=== PATIENT | male | born 1965 | race Caucasian/White ===

== ENCOUNTER 2018-02-14 11:33 | Outpatient (RCR) | payer OTHER, SELFPAY | END 2018-02-28 23:59 | disposition home or self-care (01) | LOC: CR 11:33 | PROVIDERS: PCP Family Medicine; Visit Provider Family Medicine | DX: Z51.89 Encounter for other specified aftercare (principal) ==

== ENCOUNTER 2018-03-02 20:29 | Outpatient (RCR) | payer OTHER, SELFPAY | END 2018-03-30 23:59 | disposition home or self-care (01) | LOC: CR 20:29 | PROVIDERS: PCP Family Medicine; Visit Provider Family Medicine | DX: Z51.89 Encounter for other specified aftercare (principal); Z95.2 Presence of prosthetic heart valve; I10 Essential (primary) hypertension ==

== ENCOUNTER 2018-03-28 13:22 | Outpatient (RCR) | payer OTHER, SELFPAY | END 2018-03-30 23:59 | disposition home or self-care (01) | LOC: CR 13:22 | PROVIDERS: PCP Family Medicine; Visit Provider Family Medicine | DX: Z95.2 Presence of prosthetic heart valve (principal); I10 Essential (primary) hypertension; Z51.89 Encounter for other specified aftercare | CPT/HCPCS: S9472 ==

== ENCOUNTER 2018-04-28 00:53 | Outpatient (CLI) | payer OTHER, SELFPAY ==
--- NOTE | 2018-04-28 13:35 | MERGE_ITS ---
*[facility]* *[facility]* [address] [place] [address] Date of study: 04/28/2018 Transthoracic Echocardiography M-mode, complete 2D, complete spectral Doppler, and color Doppler *STUDY CONCLUSIONS* Summary: 1. Left ventricle: The cavity size was normal. Systolic function was at the lower limits of normal. The estimated ejection fraction was 50-55%. 2. Aortic valve: There was mild regurgitation. Valve area (Vmean): 3.5cm^2. 3. Mitral valve: Status post PMVL repair with annuloplasty ring. There was moderate regurgitation. 4. Right ventricle: The cavity size was mildly dilated. Systolic function was normal. 5. Atrial septum: No defect or patent foramen ovale was identified. 6. Tricuspid valve: There was mild-moderate regurgitation. 7. Pulmonary arteries: Pulmonary systolic pressure was in the range of 20mm Hg to 30mm Hg. 8. Inferior vena cava: The vessel was normal in size. The respirophasic diameter changes were in the normal range (greater than or equal to 50%), consistent with normal central venous pressure. 9. Pericardium, extracardiac: A large, pericardial effusion was identified circumferential to the heart. The fluid contained focal strands. There was no chamber collapse. Features were not consistent with tamponade physiology. *PATIENT PRESENTATION* Height: 180.3cm ((71in) ) S/D Pressure: 128 / 73 Weight: 95.3kg ((209.6lb) ) BSA: 2.21m^2 Test start time: 02:00 PM. Test stop time: 03:00 PM. PERFORMING Unknown ORDERING Qi Hunt REFERRING Qi Hunt PERFORMING [facility] CABINETMAKER APPRENTICE Evelyn Johns, RT [place])([place]), [facility] *PROCEDURE DATA* Procedure information: The patient was identified by two identifiers. This study was interpreted by [facility]. Pertinent images and digital data are archived for permanent storage and are available for subsequent review. Comparison was made to the study of 10/29/2017. Study status: Routine. Transthoracic echocardiography. M-mode, complete 2D, complete spectral Doppler, and color Doppler. A Transthoracic Echocardiogram was performed. Scanning was performed from the parasternal, apical, subcostal, and suprasternal notch acoustic windows. Images were obtained using an [id number] cardiac ultrasound machine. Image quality was adequate. Study completion: The patient tolerated the procedure well. *CARDIAC ANATOMY* Left ventricle: The cavity size was normal. Systolic function was at the lower limits of normal. The estimated ejection fraction was 50-55%. The tissue Doppler parameters were normal. Diastolic parameters were normal. There was no evidence of elevated ventricular filling pressure by Doppler parameters. Aortic valve: Trileaflet. Doppler: There was no stenosis. There was mild regurgitation. VTI ratio of LVOT to aortic valve: 0.72. Valve area (VTI): 3.3cm^2. Indexed valve area (VTI): 1.5cm^2/m^2. Peak velocity ratio of LVOT to aortic valve: 0.76. Valve area (Vmax): 3.5cm^2. Indexed valve area (Vmax): 1.6cm^2/m^2. Mean velocity ratio of LVOT to aortic valve: 0.77. Valve area (Vmean): 3.5cm^2. Indexed valve area (Vmean): 1.6cm^2/m^2. Mean gradient (S): 5.4mm Hg. Peak gradient (S): 9.5mm Hg. Aorta: Aortic root: The aortic root was normal in size. Ascending aorta: The ascending aorta was normal in size. Mitral valve: Status post PMVL repair with annuloplasty ring. Doppler: There was no evidence for stenosis. There was moderate regurgitation. Valve area by pressure half-time: 2.8cm^2. Indexed valve area by pressure half-time: 1.3cm^2/m^2. Peak gradient (D): 3.4mm Hg. Left atrium: The atrium was normal in size. Atrial septum: No defect or patent foramen ovale was identified. Right ventricle: The cavity size was mildly dilated. Systolic function was normal. Pulmonic valve: Doppler: There was no evidence for stenosis. There was no significant regurgitation. Tricuspid valve: Doppler: There was mild-moderate regurgitation. Pulmonary artery: Poorly visualized. Pulmonary systolic pressure was in the range of 20mm Hg to 30mm Hg. Right atrium: The atrium was normal in size. Pericardium: A large, pericardial effusion was identified circumferential to the heart. The fluid contained focal strands. Doppler: There was no chamber collapse. Features were not consistent with tamponade physiology. Systemic veins: Inferior vena cava: The vessel was normal in size. The respirophasic diameter changes were in the normal range (greater than or equal to 50%), consistent with normal central venous pressure. Measurements Left ventricle Value 10/29/2017 Reference LV ID, ED, PLAX 4.8 cm 5.6 3.5 - 6.0 LV ID, ES, PLAX 3.5 cm 3.6 2.1 - 4.0 LV PW thickness, ED, PLAX 1.1 cm 1.1 LV end-diastolic volume, 120 ml 92 1-p A2C LV ejection fraction, 1-p 56 % 53 A2C LV end-diastolic volume, 131 ml 112 1-p A4C LV ejection fraction, 1-p 50 % 62 A4C LV e', lateral 0.126 m/sec 0.088 LV E/e', lateral 7 9 LV e', medial 0.089 m/sec 0.093 LV E/e', medial 10 8 LV e', average 0.107 m/sec 0.091 LV E/e', average 9 9 Ventricular septum Value 10/29/2017 Reference IVS thickness, ED, PLAX 1.2 cm 1.1 LVOT Value 10/29/2017 Reference LVOT ID, A-P 2.4 cm 2.4 LVOT area 4.6 cm^2 4.5 LVOT peak velocity, S 1.17 m/sec 1.25 LVOT mean velocity, S 0.86 m/sec 0.81 LVOT VTI, S 23.9 cm 20.8 LVOT peak gradient, S 5.5 mm Hg 6.3 LVOT mean gradient, S 3.3 mm Hg 3.1 Stroke volume (SV), LVOT DP 110 ml 93 Stroke index (SV/bsa), LVOT 50 ml/m^2 40 DP Aortic valve Value 10/29/2017 Reference Aortic valve peak velocity, 1.5 m/sec 1.9 S Aortic valve mean velocity, 1.12 m/sec 1.13 S Aortic valve VTI, S 33.0 cm 33.1 Aortic mean gradient, S 5.4 mm Hg 6.1 Aortic peak gradient, S 9.5 mm Hg 13.8 VTI ratio, LVOT/AV 0.72 0.63 Aortic valve area, VTI 3.3 cm^2 2.8 Velocity ratio, peak, 0.76 0.67 LVOT/AV Aortic valve area, peak 3.5 cm^2 3 velocity Velocity ratio, mean, 0.77 0.71 LVOT/AV Aortic valve area, mean 3.5 cm^2 3.2 velocity Aortic valve area/bsa, mean 1.6 cm^2/m^2 1.4 velocity Aorta Value 10/29/2017 Reference Aortic root ID, ED 3.3 cm 3.2 Ascending aorta ID, A-P, S 3.6 cm 3.3 Left atrium Value 10/29/2017 Reference LA ID, A-P, ES 3.9 cm 4.8 LA ID/bsa, A-P 1.8 cm/m^2 2.1 <=2.2 LA area, ES, A4C (H) 29 cm^2 29.9 8.8 - 23.4 LA area, ES, A2C 23 cm^2 21 LA volume, ES, 2-p 102 ml 99 LA volume/bsa, ES, 2-p 46 ml/m^2 42 LA/aortic root ratio 1.19 1.49 Mitral valve Value 10/29/2017 Reference Mitral E-wave peak velocity 0.92 m/sec 0.77 Mitral A-wave peak velocity 0.85 m/sec 0.56 Mitral deceleration time (H) 269 ms 182 150 - 230 Mitral pressure half-time 78 ms 53 Mitral peak gradient, D 3.4 mm Hg 2.4 Mitral E/A ratio, peak 1.08 1.37 Mitral valve area, PHT, DP 2.8 cm^2 4.2 Pulmonary veins Value 10/29/2017 Reference Pulmonary vein peak 0.42 m/sec velocity, S Pulmonary vein peak 0.54 m/sec velocity, D Pulmonary vein velocity 0.78 ratio, peak, S/D Pulmonary vein A-wave 0.36 m/sec reversal peak velocity Tricuspid valve Value 10/29/2017 Reference Tricuspid regurg peak 2.4 m/sec 2.8 velocity Tricuspid peak RV-RA 23.2 mm Hg 30.7 gradient Right atrium Value 10/29/2017 Reference RA area, ES, A4C 16.1 cm^2 16.1 8.3 - 19.5 Pericardium Value 10/29/2017 Reference Pericardial effusion 1.6 cm dimens, anterior Pericardial effusion 2.9 cm dimens, posterior Legend: (L) and (H) steven values outside specified reference range. I have personally reviewed the images and have reviewed and edited the reported findings. Electronically signed by Colton Sanders MD 04/28/2018 17:30
== END 2018-04-28 01:13 ==
PROVIDERS: PCP Family Medicine; Visit Provider Internal Medicine Cardiovascular Disease
DX: I35.1 Nonrheumatic aortic (valve) insufficiency (principal); I36.1 Nonrheumatic tricuspid (valve) insufficiency; I31.3 Pericardial effusion (noninflammatory); Z95.2 Presence of prosthetic heart valve; I10 Essential (primary) hypertension
CPT/HCPCS: 93306

== ENCOUNTER 2018-04-30 08:00 | Outpatient (RCR) | payer OTHER, SELFPAY | END 2018-04-30 23:59 | disposition home or self-care (01) | LOC: CR 08:00 | PROVIDERS: PCP Family Medicine; Visit Provider Family Medicine | DX: Z95.2 Presence of prosthetic heart valve (principal); I10 Essential (primary) hypertension; Z51.89 Encounter for other specified aftercare | CPT/HCPCS: S9472 ==

== ENCOUNTER 2018-05-30 13:20 | Outpatient (RCR) | payer OTHER, SELFPAY | END 2018-05-30 23:59 | disposition home or self-care (01) | LOC: CR 13:20 | PROVIDERS: PCP Family Medicine; Visit Provider Family Medicine | DX: Z95.2 Presence of prosthetic heart valve (principal); I10 Essential (primary) hypertension; Z51.89 Encounter for other specified aftercare | CPT/HCPCS: S9472 ==

== ENCOUNTER 2018-06-06 07:00 | Outpatient (RCR) | payer OTHER, SELFPAY | END 2018-06-30 23:59 | LOC: CR 07:00 | PROVIDERS: PCP Family Medicine; Visit Provider Family Medicine | DX: Z95.2 Presence of prosthetic heart valve (principal); I10 Essential (primary) hypertension; Z51.89 Encounter for other specified aftercare | CPT/HCPCS: S9472 ==

== ENCOUNTER 2018-06-09 12:06 | Day surgery (SDC) | payer OTHER, SELFPAY ==
--- NOTE | 2018-06-09 06:37 | W.COLOREPORT ---
Date of service: 06/09/18 Time of Service: 13:10 Colonoscopy Report Date of procedure: 06/09/18 Pre-op diagnosis general: Hx of polyps Post-op diagnosis procedure note: other (6 polyps and diverticulosis) Procedure: Colonoscopy with polypectomy by cold forceps Surgeon: Lisa Schmidt Anesthesia proc note operative: MAC (Ana Beyer CRNA/ ASA 2) Estimated blood loss (mL): 5 Pathology: other (cecal polyp x3, ascending colon polyps x2, transverse colon polyp) Complications: None Disposition: same day Indications: Mr. Lombardi is a pleasant 52-year-old gentleman who was seen in the office for a colonoscopy. He has a history of polyps. Risks, benefits and complications were reviewed with him and he wished to proceed. No guarantees were given or implied. Prep: Miralax/Dulcolax Procedure Start Time: 13:10 Procedure End Time: 13:41 Retraction Time: 24 Findings: 6 polyps. 3 polyps in the cecum, 2 in the ascending colon and 1 in the transverse colon Procedure Description: After informed consent was obtained the patient was taken to the procedure room and placed in a left decubitous position. Monitors were applied and a time out was done. The patients name, date of , procedure, allergies to medications and metal in their body was reviewed. The patient was then sedated. Once sedated and comfortable a rectal exam was done. External exam was normal. Internal exam revealed a normal sphincter tone and no palpable masses. Prostate felt normal. The scope was then introduced and retro-flexed. Small internal hemorrhoids were identified. The scope was then advanced to the cecum without difficulty. The TI and appendiceal orifice were identified. The prep was adequate. The scope was then slowly retracted over 24 minutes back into the rectum. 3 polyps were removed with cold forceps in the cecum, 2 polyps were removed in the ascending colon and 1 polyp was removed in the transverse colon. The scope was removed and the patient was woken up and taken back to Same day surgery in stable condition. The patient tolerated the procedure well and there were no immediate complications. Follow up: The patient should follow up in 3-5 years unless they develop changes in bowel habits or other new gastrointestinal complaints.
--- NOTE | 2018-06-09 06:39 | PDOC.DSDIS_ITS ---
Discharge Plan Disposition Patient Disposition: HOME Condition: Good Discharge Details Reason For Visit: Hx of polyps/Colonoscopy Attending Provider: Lisa Schmidt Primary Care Provider: Robert Anderson Home Meds and New Rx's Prescriptions: Continue amiodarone 400 mg tablet 200 mg PO DAILY RF: 0 lisinopril 20 mg tablet 20 mg PO DAILY Qty: 90 RF: 4 simvastatin [Zocor] 20 MG tablet 20 mg PO HS Qty: 90 RF: 4 melatonin 3 MG tablet 3 mg PO HS RF: 0 acetaminophen 500 MG tablet 1,000 mg PO Q12H PRN RF: 0 aspirin 81 MG tablet,chewable 81 mg PO DAILY RF: 0 Discharge Instructions Instructions: Colonoscopy (DC), Diverticulosis (DC), Colorectal Polyps (DC) Additional Instructions: Findings: 6 polyps Diverticulosis Follow up: 3-5 years Please call if you develop: fevers >101.5 Nausea or vomiting Abdominal pain that is not transient DAY SURGERY UNIT POST COLONOSCOPY INSTRUCTIONS 1. Because there will be medication in your system for the next 24 hours, you may feel a little sleepy. Your coordination will be affected. Therefore: a. Do not drive or operate dangerous equipment for 24 hours. b. Do not drink alcohol beverages for 24 hours (not even beer). c. Plan to go home and rest for the day. 2. Generally there are no restrictions on your activity after a day or so has gone by, but you may feel a bit fatigued for a few days. 3 After you arrive home you may have a light meal and return to a normal diet as you can tolerate it without feeling sick to your stomach. 4. After surgery, you may feel pain or discomfort. This should be only transient , but if it persists please contact your doctor. 5. If there are any questions regarding the findings of your procedure, please feel free to contact your doctor. 6. If you are unable to contact your doctor with a problem, contact the hospital at [phone]. 7. Continue all your regular medications unless directed otherwise. I understand the above instructions and have no questions. Signature of Patient or Responsible Adult Escort Date/Time Name of Responsible Adult Escort Signature of Nurse Date/Time Activity:: Activity as Tolerated Diet:: high fiber diet Discharge Orders Discharge Orders: Discharge Order (Routine); Ordered 06/09/18 Ordered By: Lisa Schmidt DS: Diagnosis Discharge Diagnosis (1) Diverticulosis: Status: Acute (2) Colon polyps: Status: Acute (3) S/P colonoscopy: Status: Acute
[2018-06-09 12:15] VITALS: BP 126/84; PULSE 83; RESP 16; TEMP 36.4; O2SAT 97
[2018-06-09] MEDS: Lactated Ringers 1,000 ML 80 ML IV (12:40)
--- NOTE | 2018-06-09 13:19 | BOWEL_PTH ---
PATIENT: Justin Lombardi LOC: [facility] U#:[id number] AGE/SX: 52/M ROOM: RE06/09/[address]: Lisa Schmidt MD : 1965 BED: DIS: 06/09/2018 SPEC #: [id number] RECD: 06/09/18 18:17 STATUS: JUSTYN REQ #: [id number] SEDRICK: 06/09/18 13:[address]: Lisa Schmidt DEPT: Surgical Specimen RECD BY: Leonie Crane ENTERED: 06/09/18 18:19 SP TYPE: Bowel OTHR DR: Robert Anderson MD Tissues: 1 - BIOPSY BOWEL 2 - BIOPSY BOWEL 3 - BIOPSY BOWEL Procedures: GROSS AND MICRO LEVEL 4 Comments: [id number]
[2018-06-09 14:25] VITALS: BP 129/84; PULSE 72; RESP 17; TEMP 35.9; O2SAT 98
== END 2018-06-09 14:38 | disposition home or self-care (01) ==
LOC: SUR 12:06
PROVIDERS: PCP Family Medicine; Visit Provider Surgery
PROC: 0DJD8ZZ Inspection of Lower Intestinal Tract, Via Natural or Artificial Opening Endoscopic (ICD-10-PCS; CPT 45378; principal; 2018-06-09 12:30)
DX: Z12.11 Encounter for screening for malignant neoplasm of colon (principal); D12.0 Benign neoplasm of cecum; D12.2 Benign neoplasm of ascending colon; D12.3 Benign neoplasm of transverse colon; I10 Essential (primary) hypertension
CPT/HCPCS: 45380; 88305

== ENCOUNTER 2018-06-27 00:52 | Outpatient (CLI) | payer OTHER, SELFPAY ==
--- NOTE | 2018-06-27 10:35 | MERGE_ITS ---
*[facility]* *[facility]* [address] [place] [address] Date of study: 06/27/2018 Transthoracic Echocardiography M-mode, complete 2D, complete spectral Doppler, and color Doppler *STUDY CONCLUSIONS* Impressions: Significant reduction in pericardial effusion size. Summary: 1. Left ventricle: The cavity size was normal. Wall thickness was normal. Systolic function was at the lower limits of normal. The estimated ejection fraction was 50-55%. Wall motion was normal; there were no regional wall motion abnormalities. 2. Aortic valve: There was trivial regurgitation. 3. Mitral valve: Prior procedures included surgical repair. An annular ring prosthesis was present. There was mild regurgitation. 4. Left atrium: The atrium was mildly dilated. 5. Right ventricle: The cavity size was mildly dilated. Wall thickness was normal. Systolic function was normal. 6. Pulmonary arteries: Pulmonary systolic pressure was mildly increased. PA peak pressure: 39mm Hg (S). 7. Pericardium, extracardiac: A small pericardial effusion was identified along the left ventricular free wall and along the right ventricular free wall. There was no evidence of hemodynamic compromise. *PATIENT PRESENTATION* Height: 180.3cm ((71in) ) S/D Pressure: 124 / 76 Weight: 93kg ((204.6lb) ) BSA: 2.18m^2 Test start time: 10:35 AM. Test stop time: 11:35 AM. CONSULTING Robert Anderson Preeth REFERRING Qi Hunt PERFORMING [facility] TRANSACTION COORDINATOR RT Luisa (R)(MARILYN), EROS *PROCEDURE DATA* Procedure information: The patient was identified by two identifiers. This study was interpreted by [facility]. Pertinent images and digital data are archived for permanent storage and are available for subsequent review. Comparison was made to the study of 04/28/2018. Study status: Routine. Transthoracic echocardiography. M-mode, complete 2D, complete spectral Doppler, and color Doppler. A Transthoracic Echocardiogram was performed. Scanning was performed from the parasternal, apical, subcostal, and suprasternal notch acoustic windows. Images were obtained using an [id number] cardiac ultrasound machine. Image quality was fair. Study completion: The patient tolerated the procedure well. History: PMH: Pericardial effusion . Non inflammatory. *CARDIAC ANATOMY* Left ventricle: The cavity size was normal. Wall thickness was normal. Systolic function was at the lower limits of normal. The estimated ejection fraction was 50-55%. Wall motion was normal; there were no regional wall motion abnormalities. Some parameters suggest diastolic dysfunction. Aortic valve: Trileaflet; normal thickness leaflets. Mobility was not restricted. Doppler: Transvalvular velocity was within the normal range. There was no stenosis. There was trivial regurgitation. VTI ratio of LVOT to aortic valve: 0.86. Valve area (VTI): 3cm^2. Indexed valve area (VTI): 1.4cm^2/m^2. Peak velocity ratio of LVOT to aortic valve: 0.83. Valve area (Vmax): 2.9cm^2. Indexed valve area (Vmax): 1.3cm^2/m^2. Mean velocity ratio of LVOT to aortic valve: 0.77. Valve area (Vmean): 2.7cm^2. Indexed valve area (Vmean): 1.2cm^2/m^2. Mean gradient (S): 4.7mm Hg. Peak gradient (S): 7.6mm Hg. Aorta: Aortic root: The aortic root was at upper normal limits. Ascending aorta: The ascending aorta was at upper normal limits. Aortic arch: The aortic arch was normal in size. Mitral valve: Prior procedures included surgical repair. An annular ring prosthesis was present. Mobility was not restricted. Doppler: Transvalvular velocity was within the normal range. There was no evidence for stenosis. There was mild regurgitation. Valve area by pressure half-time: 2.9cm^2. Indexed valve area by pressure half-time: 1.3cm^2/m^2. Peak gradient (D): 4.3mm Hg. Left atrium: The atrium was mildly dilated. Right ventricle: The cavity size was mildly dilated. Wall thickness was normal. Systolic function was normal. Pulmonic valve: Poorly visualized. Doppler: Transvalvular velocity was within the normal range. There was no evidence for stenosis. There was trivial regurgitation. Peak gradient (S): 6mm Hg. Tricuspid valve: Structurally normal valve. Doppler: Transvalvular velocity was within the normal range. There was no evidence for stenosis. There was mild regurgitation. Pulmonary artery: Poorly visualized. Pulmonary systolic pressure was mildly increased. Right atrium: The atrium was normal in size. Pericardium: A small pericardial effusion was identified along the left ventricular free wall and along the right ventricular free wall. There was no evidence of hemodynamic compromise. Systemic veins: Inferior vena cava: The vessel was patent and mildly dilated in size. The respirophasic diameter changes were in the normal range (greater than or equal to 50%), consistent with normal central venous pressure. Baseline ECG: Normal sinus rhythm. Measurements Left ventricle Value 04/28/2018 Reference LV ID, ED, PLAX 5.2 cm 4.8 3.5 - 6.0 LV ID, ES, PLAX 3.5 cm 3.5 2.1 - 4.0 LV PW thickness, ED, PLAX 1.1 cm 1.1 LV end-diastolic volume, 134 ml 120 1-p A2C LV ejection fraction, 1-p 58 % 56 A2C LV end-diastolic volume, 146 ml 131 1-p A4C LV ejection fraction, 1-p 54 % 50 A4C LV e', lateral 0.077 m/sec 0.126 LV E/e', lateral 14 7 LV e', medial 0.073 m/sec 0.089 LV E/e', medial 14 10 LV e', average 0.075 m/sec 0.107 LV E/e', average 14 9 Ventricular septum Value 04/28/2018 Reference IVS thickness, ED, PLAX 0.9 cm 1.2 LVOT Value 04/28/2018 Reference LVOT ID, A-P 2.1 cm 2.4 LVOT area 3.5 cm^2 4.6 LVOT peak velocity, S 1.15 m/sec 1.17 LVOT mean velocity, S 0.79 m/sec 0.86 LVOT VTI, S 27.4 cm 23.9 LVOT peak gradient, S 5.3 mm Hg 5.5 LVOT mean gradient, S 2.8 mm Hg 3.3 Stroke volume (SV), LVOT 96 ml 110 DP Stroke index (SV/bsa), 44 ml/m^2 50 LVOT DP Aortic valve Value 04/28/2018 Reference Aortic valve peak 1.4 m/sec 1.5 velocity, S Aortic valve mean 1.03 m/sec 1.12 velocity, S Aortic valve VTI, S 32.0 cm 33.0 Aortic mean gradient, S 4.7 mm Hg 5.4 Aortic peak gradient, S 7.6 mm Hg 9.5 VTI ratio, LVOT/AV 0.86 0.72 Aortic valve area, VTI 3 cm^2 3.3 Velocity ratio, peak, 0.83 0.76 LVOT/AV Aortic valve area, peak 2.9 cm^2 3.5 velocity Velocity ratio, mean, 0.77 0.77 LVOT/AV Aortic valve area, mean 2.7 cm^2 3.5 velocity Aortic valve area/bsa, 1.2 cm^2/m^2 1.6 mean velocity Aorta Value 04/28/2018 Reference Aortic root ID, ED 3.5 cm 3.3 Ascending aorta ID, A-P, S 3.5 cm 3.6 Aortic arch ID 2.3 cm Left atrium Value 04/28/2018 Reference LA ID, A-P, ES 4.2 cm 3.9 LA ID/bsa, A-P 1.9 cm/m^2 1.8 <=2.2 LA area, ES, A4C 22.3 cm^2 29 8.8 - 23.4 LA area, ES, A2C 20 cm^2 23 LA volume/bsa, ES, 1-p A4C 37 ml/m^2 LA volume, ES, 2-p 65 ml 102 LA volume/bsa, ES, 2-p 30 ml/m^2 46 LA/aortic root ratio 1.21 1.19 Mitral valve Value 04/28/2018 Reference Mitral E-wave peak 1.04 m/sec 0.92 velocity Mitral A-wave peak 1.08 m/sec 0.85 velocity Mitral deceleration time (H) 260 ms 269 150 - 230 Mitral pressure half-time 76 ms 78 Mitral peak gradient, D 4.3 mm Hg 3.4 Mitral E/A ratio, peak 0.96 1.08 Mitral valve area, PHT, DP 2.9 cm^2 2.8 Pulmonary veins Value 04/28/2018 Reference Pulmonary vein peak 0.47 m/sec 0.42 velocity, S Pulmonary vein peak 0.56 m/sec 0.54 velocity, D Pulmonary vein velocity 0.84 0.78 ratio, peak, S/D Pulmonary arteries Value 04/28/2018 Reference PA pressure, S, DP (H) 39 mm Hg <=30 Tricuspid valve Value 04/28/2018 Reference Tricuspid regurg peak 2.9 m/sec 2.4 velocity Tricuspid peak RV-RA 34.7 mm Hg 23.2 gradient Right atrium Value 04/28/2018 Reference RA area, ES, A4C 12.8 cm^2 16.1 8.3 - 19.5 Systemic veins Value 04/28/2018 Reference Estimated CVP 10 mm Hg Right ventricle Value 04/28/2018 Reference RV pressure, S, DP (H) 45 mm Hg <=30 Pulmonic valve Value 04/28/2018 Reference Pulmonic peak gradient, S 6 mm Hg Legend: (L) and (H) steven values outside specified reference range. I have personally reviewed the images and have reviewed and edited the reported findings. Electronically signed by Svetlana Renee 06/28/2018 10:54
== END 2018-06-27 01:12 ==
PROVIDERS: PCP Family Medicine; Visit Provider Internal Medicine Cardiovascular Disease
DX: I31.3 Pericardial effusion (noninflammatory) (principal); I51.7 Cardiomegaly; I35.1 Nonrheumatic aortic (valve) insufficiency; Z95.3 Presence of xenogenic heart valve; I10 Essential (primary) hypertension
CPT/HCPCS: 93306

== ENCOUNTER 2018-07-30 11:00 | Outpatient (RCR) | payer SELFPAY ==
--- NOTE | 2018-07-03 10:28 | PR3E_ITS ---
52 year old male who graduated Cardiac Rehabilitation Phase 2 on 06/06/18 and decided to transition to the maintenance phase, 3 days per week. 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 HR w/ exercise 104-114 bpm, BP at rest 125/83, HR rest 80 bpm. MARV RPE scores 12-13. Tolerated exercise regimen without any adverse signs or symptoms. No concerns at this time,will continue to progress as tolerated.
== END 2018-07-31 23:59 | disposition home or self-care (01) ==
LOC: CR 11:00
PROVIDERS: PCP Family Medicine; Visit Provider Family Medicine
DX: Z95.2 Presence of prosthetic heart valve (principal); I10 Essential (primary) hypertension; Z51.89 Encounter for other specified aftercare
CPT/HCPCS: S9472

== ENCOUNTER 2018-08-27 07:00 | Outpatient (RCR) | payer SELFPAY | END 2018-08-28 23:59 | disposition home or self-care (01) | LOC: CR 07:00 | PROVIDERS: PCP Family Medicine; Visit Provider Family Medicine | DX: Z95.2 Presence of prosthetic heart valve (principal); I10 Essential (primary) hypertension; Z51.89 Encounter for other specified aftercare | CPT/HCPCS: S9472 ==

== ENCOUNTER 2018-09-19 07:00 | Outpatient (RCR) | payer SELFPAY | END 2018-09-28 23:59 | disposition home or self-care (01) | LOC: CR 07:00 | PROVIDERS: PCP Family Medicine; Visit Provider Family Medicine | DX: Z95.2 Presence of prosthetic heart valve (principal); I10 Essential (primary) hypertension; Z51.89 Encounter for other specified aftercare | CPT/HCPCS: S9472 ==

== ENCOUNTER 2018-10-01 00:42 | Emergency (ER) | payer OTHER, SELFPAY ==
--- NOTE | 2018-10-01 01:55 | DI.RAD_ITS ---
SYMPTOM/DIAGNOSIS: LT THUMB PAIN, CAUGHT IN CLAMP, LACERATION LEFT THUMB: A nondisplaced fracture through the distal phalanx of the thumb is demonstrated. There is no evidence of a dislocation.
== END 2018-10-01 02:58 ==
LOC: ER 02:56
PROVIDERS: Emergency Provider Emergency Medicine; PCP Family Medicine
DX: S67.02XA Crushing injury of left thumb, initial encounter (principal); S62.525A Nondisplaced fracture of distal phalanx of left thumb, initial encounter for closed fracture; W23.0XXA Caught, crushed, jammed, or pinched between moving objects, initial encounter
CPT/HCPCS: 26750; 73140

== ENCOUNTER 2018-10-06 08:59 | Outpatient (CLI) | payer OTHER, SELFPAY ==
--- NOTE | 2018-10-06 08:44 | DI.RAD_ITS ---
SYMPTOMS/DIAGNOSIS: LT DISTAL PHALANX FRACTURE LEFT THUMB: Three views. Comparison 10/01/18. There has been no change in alignment of the nondisplaced fracture involving the distal phalanx of the left thumb.
== END 2018-10-06 09:19 ==
PROVIDERS: PCP Family Medicine; Visit Provider Physician Assistant
DX: S62.525D Nondisplaced fracture of distal phalanx of left thumb, subsequent encounter for fracture with routine healing (principal)
CPT/HCPCS: 73140

== ENCOUNTER 2018-10-17 13:12 | Outpatient (RCR) | payer SELFPAY | END 2018-10-28 23:59 | disposition home or self-care (01) | LOC: CR 13:12 | PROVIDERS: PCP Family Medicine; Visit Provider Family Medicine | DX: Z95.2 Presence of prosthetic heart valve (principal); I10 Essential (primary) hypertension; Z51.89 Encounter for other specified aftercare | CPT/HCPCS: S9472 ==

== ENCOUNTER 2018-10-20 09:14 | Outpatient (CLI) | payer OTHER, SELFPAY ==
--- NOTE | 2018-10-20 09:12 | DI.RAD_ITS ---
SYMPTOM/DIAGNOSIS: F/U THUMB FX LEFT THUMB: Comparison is made with 10/06/18. There has been no change in the alignment of the fracture of the distal phalanx of the thumb. No new abnormalities are seen.
== END 2018-10-20 09:34 ==
PROVIDERS: PCP Family Medicine; Visit Provider Student in an Organized Health Care Education/Training Program
DX: S62.525D Nondisplaced fracture of distal phalanx of left thumb, subsequent encounter for fracture with routine healing (principal)
CPT/HCPCS: 73140

== ENCOUNTER 2018-10-23 15:07 | Outpatient (CLI) | payer OTHER, SELFPAY ==
[2018-10-23 15:56] LABS: HCT 42.1 % (40.0-50.0); Mean Corp. HGB Concentration 33.3 g/dL (32.0-36.0); Mean Corpuscular Hemoglobin 29.3 pg (27.0-33.0); Mean Corpuscular Volume 88.1 fL (80-95); Mean Platelet Volume 9.5 fL (8.0-11.0); Platelet Count 249 x1000/uL (130-400); RBC 4.78 m/cumm (4.50-6.00); RBC Distribution Width 13.6 % (11.8-14.1)
[2018-10-23 17:00] LABS: ALT 34 U/L (12-78); AST 18 U/L (15-37); Albumin 4.1 g/dL (3.4-5.0); Alkaline Phosphatase 85 U/L (46-116); Anion Gap 7.9 mmol/L (3-11); BUN 19 mg/dL (7-18); Bilirubin, Total 0.5 mg/dL (0.2-1.0); CO2 28.1 mmol/L (21.0-32.0); CREATININE 0.75 mg/dL (0.70-1.30); Calcium 8.9 mg/dL (8.5-10.1); Chloride 102 mmol/L (98-107); Glucose 85 mg/dL (70-100); Potassium 4.2 mmol/L (3.5-5.1); Sodium 138 mmol/L (136-145)
== END 2018-10-23 15:27 ==
PROVIDERS: PCP Family Medicine; Visit Provider Surgery
DX: K40.90 Unilateral inguinal hernia, without obstruction or gangrene, not specified as recurrent (principal)
CPT/HCPCS: 36415; 80053; 85027

== ENCOUNTER 2018-10-29 04:44 | Outpatient (RCR) | payer SELFPAY | END 2018-11-28 23:59 | disposition home or self-care (01) | LOC: CR 04:44 | PROVIDERS: PCP Family Medicine; Visit Provider Family Medicine | DX: Z95.2 Presence of prosthetic heart valve (principal); I10 Essential (primary) hypertension; Z51.89 Encounter for other specified aftercare ==

== ENCOUNTER 2018-10-31 12:42 | Outpatient (CLI) | payer OTHER, SELFPAY | END 2018-10-31 13:02 | PROVIDERS: PCP Family Medicine; Visit Provider Surgery | DX: K40.90 Unilateral inguinal hernia, without obstruction or gangrene, not specified as recurrent (principal); Z01.818 Encounter for other preprocedural examination ==

== ENCOUNTER 2018-11-11 08:47 | Day surgery (SDC) | payer OTHER, SELFPAY ==
[2018-11-11 09:11] VITALS: BP 140/90; PULSE 81; RESP 16; TEMP 35.5; O2SAT 98
[2018-11-11] MEDS: Lactated Ringers 1,000 ML 100 ML IV (09:31)
[2018-11-11] MEDS: CLINDAMYCIN 600 MG/50 ML BAG 100 MG IVPB (11:05)
[2018-11-11] MEDS: Bupivacaine 0.25% Pres-Free 30 ML VIAL ×2 (11:05→12:34)
--- NOTE | 2018-11-11 11:50 | SOFT_PTH ---
PATIENT: Justin Lombardi LOC: [facility] U#:[id number] AGE/SX: 53/M ROOM: RE11/11/[address]: Michelle Alba : 1965 BED: DIS: 11/11/2018 SPEC #: [id number] RECD: 11/11/18 17:14 STATUS: JUSTYN REQ #: [id number] SEDRICK: 11/11/18 11:[address]: Michelle Alba DEPT: Surgical Specimen RECD BY: Loenie Crane ENTERED: 11/11/18 17:15 SP TYPE: SOFT OTHR DR: Robert Anderson MD Tissues: 1 - SOFT TISSUE MISC (INC. LIPOMA) Procedures: GROSS AND MICRO LEVEL 3 Comments: [id number]
--- NOTE | 2018-11-11 12:43 | W.PM.OP ---
Date of service: 11/11/18 Time of Service: 12:44 Operative Note DATE OF PROCEDURE: 11/11/18 PRE-OP DIAGNOSIS: left inguinal hernia POST-OP DIAGNOSIS: other (indirect hernia. very lg cord lipoma x2 small) PROCEDURE: open repair w/ mesh- ex lg SURGEON: Michelle Alba VEGETABLE THINNER: Denisse Taveras ANESTHESIA: GETA and local ESTIMATED BLOOD LOSS: 5 PATHOLOGY: other Patient was transported to: PACU Patient's condition: stable Implants: [id number] Procedure Description: dictatate
--- NOTE | 2018-11-11 12:46 | ROE_ITS ---
Date of service: 11/11/18 Time of Service: 12:44 Operative Note DATE OF PROCEDURE: 11/11/18 PRE-OP DIAGNOSIS: left inguinal hernia POST-OP DIAGNOSIS: other (indirect hernia. very lg cord lipoma x2 small) PROCEDURE: open repair w/ mesh- ex lg SURGEON: Michelle Alba DECORATIVE GREENS CUTTER: Denisse Taveras ANESTHESIA: GETA and local ESTIMATED BLOOD LOSS: 5 PATHOLOGY: other Patient was transported to: PACU Patient's condition: stable Implants: [id number] Procedure Description: dictatate
--- NOTE | 2018-11-11 12:51 | W.PM.DSUDISC ---
Discharge Plan Disposition Patient Disposition: HOME Condition: Good Discharge Details Reason For Visit: left inguinal hernia repair Attending Provider: Michelle Alba Primary Care Provider: Robert Anderson Home Meds and New Rx's Prescriptions: New ibuprofen 800 mg tablet 800 mg PO TID PRN (Reason: pain) Qty: 30 RF: 3 hydrocodone-acetaminophen [Confluence] 5-325 mg tablet 1 tab PO Q4H PRN (Reason: pain) Qty: 7 RF: 0 Continued lisinopril 20 mg tablet 20 mg PO DAILY Qty: 90 RF: 4 melatonin 3 mg tablet 3 mg PO HS PRNRF: 0 simvastatin [Zocor] 20 MG tablet 20 mg PO HS Qty: 90 RF: 4 acetaminophen 500 MG tablet 1,000 mg PO Q12H PRN RF: 0 aspirin 81 MG tablet,chewable 81 mg PO DAILY RF: 0 Discharge Instructions Additional Instructions: Dr. Alba HERNIA REPAIR ? POSTOPERATIVE INSTRUCTIONS ? The MESH surgery for hernia repair allows the patient to return to normal activities at an early date. Patients who have this type of surgery can usually be expected to return to work within two weeks and have minimal amounts of discomfort. ? ACTIVITY: The day of surgery should be spent resting. However, you can be up for short periods of time, I.E., going to the bathroom or kitchen. Avoid lifting or straining. On the day following surgery, you can be up and about as desired. ? LIFTING: Restrict your lifting to no more than five (5) pounds for the first week following surgery. ? DIET: There are no dietary restrictions following surgery. However, you may want to start with small amounts of liquids to avoid nausea the day of surgery. ? INCISION CARE: A dressing covers your incision. You will notice strips of tape covering the wound ? DO NOT REMOVE THESE STRIPS - they help the wound to heal. After 24 hours you may shower and apply a clean dressing over the strips of tape. The dressing may be replaced as necessary. An ice bag may be applied to the incision for 72 hours following surgery. ? SIGNS OF INFECTION: It is not unusual to have some black and blue discoloration of the skin around the incision. It will slowly disappear. If you have any increased redness, drainage, fever (above 100 degrees), please contact your doctor for an examination. ? DISCOMFORT: You may expect to have some mild discomfort at the incision sight. If severe pain develops you should contact your doctor for further instructions. ? URINATION: Patients who have surgery occasionally have problems urinating. If you experience problems and are not able to urinate within 6 hours following your surgery, please call your doctor immediately or go to your nearest Emergency Room for evaluation. ? DRIVING: NO driving for five (5) days after surgery ? MEDICATIONS: You have been given a prescription for pain. If you are taking pain medication, follow the instructions on the label and do not drive. Some patients have conditions that require antibiotics, please follow the instructions on the label and take all of the antibiotics. Pain medications can make you very constipated. Make sure you are moving your bowels daily. If not, take Miralax, milk of magnesia or magnesium citrate. ? REPORT: Unusual swelling, severe pain, unresolved nausea, signs of infection, or difficulty in urination to your surgeon. Follow up in clinic with Dr. Alba in 1-2 weeks. Activity:: Activity as Tolerated Remove Dressings/Wound Care:: 24 hours Shower/Bathe:: 24 hours Diet:: no driving for 3-5 days or if taking narcotics. no heavy lifting or strenuous acitivity for 2 wks DS: Diagnosis Discharge Diagnosis (1) Left inguinal hernia: Status: Acute
[2018-11-11 13:00] VITALS: BP 124/74; PULSE 61; RESP 11; TEMP 36.3; O2SAT 100
[2018-11-11 13:05] VITALS: BP 128/82; PULSE 62; RESP 13; TEMP 36.3; O2SAT 100
[2018-11-11 13:10] VITALS: BP 131/84; PULSE 61; RESP 16; TEMP 36.3; O2SAT 100
[2018-11-11 13:25] VITALS: BP 130/88; PULSE 59; RESP 13; TEMP 36.3; O2SAT 100
[2018-11-11 14:10] VITALS: BP 126/81; PULSE 68; RESP 16; TEMP 36.7; O2SAT 97
[2018-11-11] MEDS: HYDROcodone 5/Acetaminophen 325 TAB PO (14:11)
--- NOTE | 2018-11-11 15:12 | ROE_ITS ---
DATE OF PROCEDURE: November 11, 2018 PREOPERATIVE DIAGNOSIS: Left inguinal hernia. POSTOPERATIVE DIAGNOSIS: Indirect left inguinal hernia. SURGEON: Michelle Alba D.O. ACCOUNT INSTALLER: Audrey Tripathi ANESTHESIA: General and local. ESTIMATED BLOOD LOSS: 10 cc's CONDITION: The patient tolerated the procedure well without complication. INDICATIONS FOR PROCEDURE: Mr. Lombardi is a 53-year-old male seen at the request of his primary care physician. He has a large left inguinal hernia and has failed outpatient conservative medical management and is here today for repair. Informed consent was obtained, explaining risks and benefits of the procedure, including but not limited to bleeding, infection, pneumonia, blood clots, chronic pain, chronic numbness, recurrence, reaction to mesh requiring removal, complications of anesthesia and other unforetold complications. He has had a mitral valve prolapse repair in the past. He is not on anticoagulation and has been cleared for surgery by his frame stripper and crusher. The patient is marked in preop. PROCEDURE DESCRIPTION: The patient is brought back to the operative suite and placed in the supine position. Anesthesia is administered per the Department of Anesthesia. He did receive preop antibiotics. The patient is prepped and draped in the usual sterile fashion using a Betadine scrub solution. A time-out is performed. 30 cc's of local using 0.25% Marcaine and 1% Lidocaine is used for local anesthetization. A #15 blade is used to make an incision over the external ring. Electrocautery was used to provide hemostasis and dissect down to the deeper tissues. Retractors are placed. The external oblique is encountered and it's opened up with a Trail. The nerve is dissected out of the way. The cord is then encountered and elevated. He has an extremely large cord lipoma about 4 x 2 inches and this is tied off and excised. He has a large hernia sac that is dissected off the cord, and this is tied off and then returned to the abdominal cavity. He has two smaller cord lipomas that are dissected off and removed. The floor appears to be intact. An extra-large Bard plug is then placed into the internal ring and over-sewn. The patch is then sewn into the pubic tubercle and brought around the cord and tacked down to the shelving portion of the external oblique, and then the ends are brought around the cord and tacked underneath the external oblique. The external oblique is then reapproximated over the cord. The cord structures are freely movable. There is no bleeding noted. The wound is then irrigated. The deep tissue is reapproximated with #3- 0 Vicryl and the skin is approximated with #4-0 Monocryl in a running subcuticular fashion. Steri strips and sterile dressings are applied. The patient did tolerate the procedure well without complication and transferred to the recovery room in stable condition. He does have an extremely small right inguinal hernia that is asymptomatic and we will continue to monitor that at this time. cc: Arlene Fenton D.O.
== END 2018-11-11 15:55 | disposition home or self-care (01) ==
PROVIDERS: PCP Family Medicine; Visit Provider Surgery
PROC: (CPT 49505; principal; 2018-11-11 10:00)
DX: K40.90 Unilateral inguinal hernia, without obstruction or gangrene, not specified as recurrent (principal); I10 Essential (primary) hypertension; D17.6 Benign lipomatous neoplasm of spermatic cord
CPT/HCPCS: 49505; 76942; 88304; C1781; J1100; J1885; J2405

== ENCOUNTER 2018-11-12 12:42 | Outpatient (CLI) | payer OTHER, SELFPAY ==
[2018-11-12 13:18] LABS: Abs Immature Grans 0.03 k/cumm (0.0-0.09); Absolute Eosinophil Count 0.02 k/cumm (0.0-0.7); Absolute Neutrophil Count 11.56 k/cumm (1.2-6.7); Basophils % 0.1; Eosinophils % 0.1; HCT 42.9 % (40.0-50.0); HGB 14.7 g/dL (13.5-17.5); Immature Grans % 0.2; Mean Corp. HGB Concentration 34.3 g/dL (32.0-36.0); Mean Corpuscular Hemoglobin 29.9 pg (27.0-33.0); Mean Corpuscular Volume 87.4 fL (80-95); Mean Platelet Volume 9.5 fL (8.0-11.0); Monocytes % 11.3; Neutrophils % 75.3; Platelet Count 282 x1000/uL (130-400); RBC 4.91 m/cumm (4.50-6.00); RBC Distribution Width 13.3 % (11.8-14.1); White Blood Cell Count 15.35 k/cumm (4.4-10.8)
[2018-11-12 13:20] LABS: Absolute Basophil Count 0.02 k/cumm (0.0-0.2); Absolute Monocyte Count 1.73 k/cumm (0.11-0.7)
[2018-11-12 14:11] LABS: Diff Comment Manual Differential; RBC Morphology Normal
== END 2018-11-12 13:02 ==
PROVIDERS: PCP Family Medicine; Visit Provider Surgery
DX: K40.90 Unilateral inguinal hernia, without obstruction or gangrene, not specified as recurrent (principal)
CPT/HCPCS: 36415; 85025

== ENCOUNTER 2018-12-24 13:00 | Outpatient (RCR) | payer SELFPAY | END 2018-12-28 23:59 | disposition home or self-care (01) | LOC: CR 13:00 | PROVIDERS: PCP Family Medicine; Visit Provider Family Medicine | DX: Z95.2 Presence of prosthetic heart valve (principal); I10 Essential (primary) hypertension; Z51.89 Encounter for other specified aftercare | CPT/HCPCS: S9472 ==

== ENCOUNTER 2019-01-28 13:36 | Outpatient (RCR) | payer SELFPAY | END 2019-01-28 23:59 | disposition home or self-care (01) | LOC: CR 13:36 | PROVIDERS: PCP Family Medicine; Visit Provider Family Medicine | DX: Z95.2 Presence of prosthetic heart valve (principal); I10 Essential (primary) hypertension; Z51.89 Encounter for other specified aftercare | CPT/HCPCS: S9472 ==

== ENCOUNTER 2019-02-06 09:40 | Outpatient (CLI) | payer OTHER, SELFPAY | END 2019-02-06 10:00 | PROVIDERS: PCP Family Medicine; Visit Provider Internal Medicine Cardiovascular Disease | DX: I48.0 Paroxysmal atrial fibrillation (principal); I10 Essential (primary) hypertension; Z95.3 Presence of xenogenic heart valve | CPT/HCPCS: 93005; 93010 ==

== ENCOUNTER 2019-02-27 07:00 | Outpatient (RCR) | payer SELFPAY | END 2019-02-28 23:59 | disposition home or self-care (01) | LOC: CR 07:00 | PROVIDERS: PCP Family Medicine; Visit Provider Family Medicine | DX: Z95.2 Presence of prosthetic heart valve (principal); I10 Essential (primary) hypertension; Z51.89 Encounter for other specified aftercare | CPT/HCPCS: S9472 ==

== ENCOUNTER 2019-03-13 13:52 | Outpatient (RCR) | payer SELFPAY | END 2019-03-30 23:59 | disposition home or self-care (01) | LOC: CR 13:52 | PROVIDERS: PCP Family Medicine; Visit Provider Family Medicine | DX: Z95.2 Presence of prosthetic heart valve (principal); I10 Essential (primary) hypertension; Z51.89 Encounter for other specified aftercare | CPT/HCPCS: S9472 ==

== ENCOUNTER 2019-03-16 07:22 | Day surgery (SDC) | payer OTHER, SELFPAY ==
[2019-03-16] VITALS (8 sets, daily range): BP systolic 102–143; BP diastolic 48–95; PULSE 51–70; RESP 13–19; TEMP 36.3–36.6; O2SAT 96–98
[2019-03-16] MEDS: Lactated Ringers 1,000 ML 100 ML IV (08:11)
[2019-03-16] MEDS: Gabapentin 300 MG CAP PO (08:14)
[2019-03-16] MEDS: Acetaminophen 500 MG TAB 1000 MG PO (08:14)
[2019-03-16] MEDS: CLINDAMYCIN 600 MG/50 ML BAG 100 MG IVPB (08:52)
[2019-03-16] MEDS: Bupivacaine LIPOSOME/PF 133 MG/10 ML VIAL IJ (09:02)
[2019-03-16] MEDS: Bupivacaine 0.25% Pres-Free 30 ML VIAL (09:02)
--- NOTE | 2019-03-16 10:28 | W.PM.DSUDISC ---
Discharge Plan Disposition Patient Disposition: HOME Condition: Good Discharge Details Attending Provider: Michelle Alba Primary Care Provider: Robert Anderson Home Meds and New Rx's Prescriptions: New ibuprofen 600 mg tablet 600 mg PO QID PRN (Reason: pain) Qty: 90 RF: 3 Discontinued aspirin 81 MG tablet,chewable 81 mg PO DAILY RF: 0 No Action lisinopril 20 mg tablet 20 mg PO DAILY Qty: 90 RF: 4 melatonin 3 mg tablet 3 mg PO HS PRNRF: 0 simvastatin [Zocor] 20 mg tablet 20 mg PO HS Qty: 90 RF: 4 acetaminophen 500 MG tablet 1,000 mg PO Q12H PRN RF: 0 ibuprofen 800 mg tablet 800 mg PO TID PRN (Reason: pain) Qty: 30 RF: 3 Discharge Instructions Additional Instructions: Dr. Alba HERNIA REPAIR ? POSTOPERATIVE INSTRUCTIONS ? The MESH PLUG surgery for hernia repair allows the patient to return to normal activities at an early date. Patients who have this type of surgery can usually be expected to return to work within two weeks and have minimal amounts of discomfort. ? ACTIVITY: The day of surgery should be spent resting. However, you can be up for short periods of time, I.E., going to the bathroom or kitchen. Avoid lifting or straining. On the day following surgery, you can be up and about as desired. ? LIFTING: Restrict your lifting to no more than five (5) pounds for the first week following surgery. ? DIET: There are no dietary restrictions following surgery. However, you may want to start with small amounts of liquids to avoid nausea the day of surgery. ? INCISION CARE: A dressing covers your incision. The dressing may be replaced as necessary. An ice bag may be applied to the incision for 72 hours following surgery. ? SIGNS OF INFECTION: It is not unusual to have some black and blue discoloration of the skin around the incision. It will slowly disappear. If you have any increased redness, drainage, fever (above 100 degrees), please contact your doctor for an examination. ? DISCOMFORT: You may expect to have some mild discomfort at the incision sight. If severe pain develops you should contact your doctor for further instructions. ? URINATION: Patients who have surgery occasionally have problems urinating. If you experience problems and are not able to urinate within 6 hours following your surgery, please call your doctor immediately or go to your nearest Emergency Room for evaluation. ? DRIVING: NO driving for five (5) days after surgery ? MEDICATIONS: You have been given a prescription for pain. If you are taking pain medication, follow the instructions on the label and do not drive. Some patients have conditions that require antibiotics, please follow the instructions on the label and take all of the antibiotics. Pain medications can make you very constipated. Make sure you are moving your bowels daily. If not, take Miralax, milk of magnesia or magnesium citrate. Take a dose of Milk of Magnesium the day after surgery- anesthesia is very constipating. ? REPORT: Unusual swelling, severe pain, unresolved nausea, signs of infection, or difficulty in urination to your surgeon. Follow up in clinic with Dr. Alba in 1-2 weeks. Hold ASA for 72 hrs and than resume. take w/ food. Do not take with ibuprofen (space them out). Activity:: see above Remove Dressings/Wound Care:: 24 hours Shower/Bathe:: 24 hours Diet:: As Tolerated Discharge Orders Discharge Orders: Discharge Order (Routine); Ordered 03/16/19 Ordered By: Michelle Alba DS: Diagnosis Discharge Diagnosis (1) Right inguinal hernia: Status: Acute
--- NOTE | 2019-03-16 10:37 | W.PM.OP ---
Date of service: 03/16/19 Time of Service: 10:37 Operative Note Operative Note DATE OF PROCEDURE: 03/16/19 PRE-OP DIAGNOSIS: right inguinal hernia POST-OP DIAGNOSIS: same PROCEDURE: open right inguinal hernia w/ mesh SURGEON: Michelle Diehl ANESTHESIA: GETA ESTIMATED BLOOD LOSS: 5 PATHOLOGY: none sent COMPLICATIONS: None Patient was transported to: PACU Implants: Bard mesh prefix plug lot [id number] Indications: pain Findings: cord lipoma indirect w/ very lg lipoma Procedure Description: INDICATIONS: regarding symptomatic right inguinal hernia that has failed outpatient conservative medical management and he is here today for repair. Informed consent was obtained, explaining risks and benefits of the procedure including but not limited to bleeding, infection, pneumonia, blood clots, chronic pain, chronic numbness, damage to testicle resulting in removal, recurrence, reaction to Mesh necessitating removal, and other unforetold complications and complications of anesthesia. The patient is marked in preop. DESCRIPTION OF PROCEDURE: was brought to the operative room suite. Anesthesia was administered per the Department of Anesthesia. The patient was prepped and draped in the usual sterile fashion using ChloraPrep scrub solution. Pause for the cause was done. He did receive preop IV antibiotics, 30 mL of 1% buffered lidocaine was used for local anesthetization. A #12 blade was used to make an incision over the external ring. Electrocautery used to provide hemostasis and dissect down to the fascia. The fascia was pretty much obliterated and there was nothing to open. The cord is elevated. The nerve was not identified. There are two very large cord lipomas. These are dissected off and cautery is used to provide hemostasis and two excise them. A Justen drain was placed around the cord to assist in mobilization. The cord was explored. There was no hernia sac on the cord. There is a very large direct hernia pushing through the floor. The transversalis in this area is pretty much obliterated. The sac is elevated and scored and inverted. A large mesh plug was then placed into the defect and oversewn into transversalis. The patch was then placed on the floor and sewn in using 2-0 Vicryl sewn into the pubic tubercle and the shelving portions of the inguinal ligament. There was really no external oblique to really reapproximate. Some is identified and dissected off and brought around the very superior portion of the cord and oversewn again with 2-0 Vicryl. The wound was copiously irrigated. There was no bleeding noted. The drain was placed. All structures are returned to normal anatomical position. Deep tissue was approximated with 3-0 Vicryl and skin was approximated with 4-0 Monocryl in a running subcuticular fashion. Steri tapes and sterile dressings are applied. The patient tolerated the procedure without complications to recovery in stable condition. MICHELLE DIEHL, DO
[2019-03-16] MEDS: Ketorolac 15 MG/ML VIAL IVP (10:40)
== END 2019-03-16 12:45 | disposition home or self-care (01) ==
PROVIDERS: PCP Family Medicine; Visit Provider Surgery
PROC: (CPT 49505; principal; 2019-03-16 08:30)
DX: K40.90 Unilateral inguinal hernia, without obstruction or gangrene, not specified as recurrent (principal); G89.18 Other acute postprocedural pain; I10 Essential (primary) hypertension; I48.0 Paroxysmal atrial fibrillation
CPT/HCPCS: 49505; 76942; C1781; J1100; J1885; J2405

== ENCOUNTER 2019-04-29 11:35 | Outpatient (RCR) | payer SELFPAY | END 2019-04-30 23:59 | disposition home or self-care (01) | LOC: CR 11:35 | PROVIDERS: PCP Family Medicine; Visit Provider Family Medicine | DX: Z95.2 Presence of prosthetic heart valve (principal); I10 Essential (primary) hypertension; Z51.89 Encounter for other specified aftercare | CPT/HCPCS: S9472 ==

== ENCOUNTER 2019-05-27 11:45 | Outpatient (RCR) | payer SELFPAY | END 2019-05-30 23:59 | disposition home or self-care (01) | LOC: CR 11:45 | PROVIDERS: PCP Family Medicine; Visit Provider Family Medicine | DX: Z95.2 Presence of prosthetic heart valve (principal); I10 Essential (primary) hypertension; Z51.89 Encounter for other specified aftercare | CPT/HCPCS: S9472 ==

== ENCOUNTER 2019-06-29 14:41 | Outpatient (RCR) | payer SELFPAY | END 2019-06-30 23:59 | disposition home or self-care (01) | LOC: CR 14:41 | PROVIDERS: PCP Family Medicine; Visit Provider Family Medicine | DX: Z95.2 Presence of prosthetic heart valve (principal); I10 Essential (primary) hypertension; Z51.89 Encounter for other specified aftercare | CPT/HCPCS: S9472 ==

== ENCOUNTER 2019-07-31 07:00 | Outpatient (RCR) | payer SELFPAY | END 2019-07-31 23:59 | disposition home or self-care (01) | LOC: CR 07:00 | PROVIDERS: PCP Family Medicine; Visit Provider Family Medicine | DX: Z95.2 Presence of prosthetic heart valve (principal); I10 Essential (primary) hypertension; Z51.89 Encounter for other specified aftercare | CPT/HCPCS: S9472 ==

== ENCOUNTER 2019-08-26 11:15 | Outpatient (RCR) | payer SELFPAY | END 2019-08-29 23:59 | disposition home or self-care (01) | LOC: CR 11:15 | PROVIDERS: PCP Family Medicine; Visit Provider Family Medicine | DX: Z95.2 Presence of prosthetic heart valve (principal); I10 Essential (primary) hypertension; Z51.89 Encounter for other specified aftercare | CPT/HCPCS: S9472 ==

== ENCOUNTER 2019-09-07 07:00 | Outpatient (RCR) | payer SELFPAY | END 2019-09-29 23:59 | disposition home or self-care (01) | LOC: CR 07:00 | PROVIDERS: PCP Family Medicine; Visit Provider Family Medicine | DX: Z95.2 Presence of prosthetic heart valve (principal); I10 Essential (primary) hypertension; Z51.89 Encounter for other specified aftercare ==

== ENCOUNTER 2019-10-13 00:20 | Outpatient (CLI) | payer OTHER, SELFPAY ==
[2019-10-13 08:41] LABS: BUN 17 mg/dL (7-18); CREATININE 0.64 mg/dL (0.70-1.30)
[2019-10-13] MEDS: Normal Saline - Diluent 50 ML VIAL IV (08:54)
[2019-10-13] MEDS: Omnipaque 350 MG/ML 100 ML BTL IJ (08:55)
[2019-10-13] MEDS: Breeza Beverage 473 ML BTL PO ×3 (08:57→09:01)
[2019-10-13] MEDS: Omnipaque 350 MG/ML 50 ML BTL IJ (08:58)
--- NOTE | 2019-10-13 09:06 | DI.CT_ITS ---
EXAM: CT ABDOMEN PELVIS W CLINICAL HISTORY: prOtrusion of abdominal wall in lower R abdomEN, ABD WALL HERNIA, K43.9 TECHNIQUE: Imaging Protocol: Axial computed tomography images with coronal and sagittal reformatted images were created and reviewed CONTRAST MATERIAL: Intravenous: Omnipaque 350 Contrast volume:100 mL Oral: Yes COMPARISON: No exams were available for comparison FINDINGS: ABDOMEN: Lung Bases: Normal where visualized. Liver: Normal density. No measurable mass. There are a few scattered tiny hypodensities within the li shelby. They are too small for further characterization but likely reflect small cysts. Portal, Superior Mesenteric, and Splenic Veins: Unremarkable. Gallbladder and Biliary Tract: No radiodense calculus or dilation. Pancreas: Normal density, no abnormal calcifications or inflammatory process. Spleen: Normal. Adrenals: No masses seen. Kidneys: Normal size, contour and axis. No radiodense stones or obstructive uropathy. No masses seen. Abdominal Aorta: Abdominal portion non-dilated. Mild atherosclerosis. Bowel: No obstruction or bowel wall thickening. Appendix is unremarkable. There is colonic diverticul osis but no evidence of acute diverticulitis. Peritoneal Cavity: No ascites, collection or mesenteric inflammatory response. Lymph Nodes: Within normal limits. Bones: Mild degenerative changes are present. Soft Tissues: The patient appears to be status post bilateral inguinal hernia repair. There does rayne ear to be a small fat containing umbilical hernia. There is no evidence of an anterior abdominal wal l hernia. PELVIS: Bladder: Symmetric distention, no gross wall thickening. Reproductive Organs: Unremarkable as visualized. Lymph Nodes: Within normal limits. Bones: Mild degenerative changes are present. IMPRESSION: 1. Status post bilateral inguinal hernia repair. 2. Small fat containing umbilical hernia. 3. No evidence of an anterior abdominal wall hernia. RADIATION DOSE DELIVERED: DATA REPOSITORY: All CT scans at this facility are submitted to the National Radiology Data Registry (NRDR) Dose Index Registry (DIR) with the [employer] (A[employer]). RADIATION OPTIMIZATION: All CT scans at this facility use at least one of these dose optimization te chniques: automated exposure control; mA and/or kV adjustment per patient size (includes targeted exa ms where dose is matched to clinical indication); or iterative reconstruction.
== END 2019-10-13 00:40 ==
PROVIDERS: PCP Family Medicine; Visit Provider Surgery
DX: K42.9 Umbilical hernia without obstruction or gangrene (principal); K76.89 Other specified diseases of liver; K57.30 Diverticulosis of large intestine without perforation or abscess without bleeding; Z98.890 Other specified postprocedural states
CPT/HCPCS: 84520; 74177; 82565; J3490; Q9967

== ENCOUNTER 2020-01-27 02:58 | Outpatient (CLI) | payer OTHER, SELFPAY ==
[2020-01-27 11:46] LABS: Anion Gap 8.6 mmol/L (3-11); BUN 16 mg/dL (7-18); CO2 28.4 mmol/L (21.0-32.0); CREATININE 0.72 mg/dL (0.70-1.30); Chloride 101 mmol/L (98-107); Glucose 102 mg/dL (74-106); Sodium 138 mmol/L (136-145)
== END 2020-01-27 03:18 ==
PROVIDERS: PCP Nurse Practitioner Family; Visit Provider Family Medicine
DX: I10 Essential (primary) hypertension (principal)
CPT/HCPCS: 36415; 80048

== ENCOUNTER 2021-02-02 03:51 | Outpatient (CLI) | payer OTHER, SELFPAY ==
[2021-02-02 07:47] LABS: Hemoglobin A1C 5.7 % (<5.7)
[2021-02-02 08:58] LABS: ALT 20 U/L (16-63); AST 15 U/L (15-37); Alkaline Phosphatase 82 U/L (46-116); Anion Gap 7.8 mmol/L (3-11); BUN 14 mg/dL (7-18); Bilirubin, Total 0.4 mg/dL (0.2-1.0); CO2 29.2 mmol/L (21.0-32.0); CREATININE 0.7 mg/dL (0.70-1.30); Calcium 8.7 mg/dL (8.5-10.1); Calculated LDL 110 mg/dL (<100); Chloride 104 mmol/L (98-107); Cholesterol 183 mg/dL (<200); Glucose 94 mg/dL (74-106); HDL Cholesterol 45 mg/dL (40-60); Potassium 4.4 mmol/L (3.5-5.1); Sodium 141 mmol/L (136-145); Total Protein 6.6 g/dL (6.4-8.2); Triglyceride 143 mg/dL (<150)
[2021-02-02 17:22] LABS: PSA, Screening 1.5 ng/mL (0.0-3.5)
== END 2021-02-02 03:52 | disposition home or self-care (01) ==
PROVIDERS: PCP Nurse Practitioner Family; Visit Provider Nurse Practitioner Family
DX: Z00.00 Encounter for general adult medical examination without abnormal findings (principal); I10 Essential (primary) hypertension; E78.2 Mixed hyperlipidemia; Z13.1 Encounter for screening for diabetes mellitus; Z12.5 Encounter for screening for malignant neoplasm of prostate
CPT/HCPCS: 36415; 80053; 80061; 84153; 83036

== ENCOUNTER 2021-10-06 02:14 | Outpatient (CLI) | payer OTHER, SELFPAY ==
[2021-10-06 12:06] LABS: Source Nasal/Nares
[2021-10-06 14:26] LABS: COVID-19 PCR Negative (Negative)
== END 2021-10-06 02:15 | disposition home or self-care (01) ==
PROVIDERS: PCP Nurse Practitioner Family; Visit Provider Surgery
DX: Z20.822 Contact with and (suspected) exposure to COVID-19 (principal); Z01.818 Encounter for other preprocedural examination
CPT/HCPCS: 87635

== ENCOUNTER 2021-10-09 06:08 | Day surgery (SDC) | payer OTHER, SELFPAY ==
[2021-10-09 06:19] VITALS: BP 131/74; PULSE 68; RESP 16; TEMP 36.4; O2SAT 98
--- NOTE | 2021-10-09 06:24 | COLE_ITS ---
Colonoscopy Report Date of procedure: 10/09/21 Pre-op diagnosis general: Hx of polyps Post-op diagnosis procedure note: other (polyps and mild diverticulosis) Procedure: Colonoscopy with polypectomy Surgeon: Lisa Schmidt Anesthesia Type: General:No Airway Estimated blood loss (mL): 3 Pathology: other (Transverse polyps) Complications: None Disposition: same day Indications: The patient is here for Colonoscopy pre-op.?His last screening was in 2018, which was remarkable for sessile serrate adenoma and tubular adenoma x 3.?He has no family history of colon cancer. He has not had any bowel habit changes. -Discussed colonoscopy bowel prep as well as the procedure. Discussed possible complications of the procedure to include bleeding, pain, perforation, missed small lesion/polyp, sore throat, aspiration and adverse reaction to the medicati ons. Questions were answered to patient?s satisfaction. No guarantees were implied or given.? Prep: Miralax/Dulcolax Procedure Start Time: 07:20 Procedure End Time: 07:46 Retraction Time: 17 minutes Findings: 2 small transverse colon polyps Mild scattered diverticulosis Procedure Description: After informed consent was obtained the patient was taken to the procedure room and placed in a left decubitous position. Monitors were applied and a time out was done. The patients name, date of , procedure, allergies to medications and metal in their body was reviewed. The patient was then sedated. Once sedated and comfortable a rectal exam was done. External exam was normal. Internal exam revealed a normal sphincter tone and no palpable masses. The prostate felt smooth and slightly enlarged. The scope was then introduced and retro-flexed. No internal hemorrhoids, polyps or masses were identified on retro-flexion. The scope was then advanced to the cecum without difficulty. The ileocecal vlave and appendiceal orifice were identified. The prep was adequate. The scope was then slowly retracted over 17 minutes back into the rectum. Polyps were removed with cold forceps in the transverse colon x2. There was mild small- diverticulosis noted. The scope was removed and the patient was woken up and taken back to Same day surgery in stable condition. The patient tolerated the procedure well and there were no immediate complications. Follow up: The patient should follow up in 5 years unless they develop changes in bowel habits or other new gastrointestinal complaints.
--- NOTE | 2021-10-09 06:25 | W.PM.DSUDISC ---
Discharge Plan Disposition Patient Disposition: HOME Condition: Good Discharge Details Reason For Visit: Colonoscopy Attending Provider: Lisa Schmidt Primary Care Provider: Arin Morgan Home Meds and New Rx's Prescriptions: Continued aspirin [Adult Low Dose Aspirin] 81 mg tablet,delayed release (DR/EC) 81 mg PO DAILY 0RF Metamucil (sugar) Powder 1 tbsp PO DAILY 0RF simvastatin [Zocor] 20 mg tablet 20 mg PO HS Qty: 90 4RF lisinopril 20 mg tablet 20 mg PO HS 0RF Discontinued bisacodyl [Dulcolax (bisacodyl)] 5 mg tablet,delayed release (DR/EC) 5 mg PO ONCE Qty: 4 0RF Rx Instructions: take per colonoscopy instructions polyethylene glycol 3350 17 gram/dose powder 238 g PO ONCE Qty: 238 0RF Rx Instructions: take per colonoscopy instructions Discharge Instructions Instructions: Diverticulosis (DC), Colorectal Polyps (DC) Additional Instructions: Findings: 2 small polyps mild diverticulosis Follow up: 5 years more then likely Please call if you develop: fevers >101.5 Nausea or Vomiting Abdominal pain that is not transient Rectal bleeding that is more then a tbsp A hard abdomen and inability to pass gas DAY SURGERY UNIT POST ENDOSCOPY INSTRUCTIONS Instructions for everyone who is given Anesthesia: For your safety, please do the following for the next 24 Hours: a. Do not drive or operate dangerous equipment b. Do not drink alcohol beverages or use any recreational drugs for the first 24 hours or while taking pain medications. The medications in your body may have a reaction that can be dangerous. c. Do not make any important decisions or sign any important papers 1. Generally there are no restrictions on your activity after a day or so has gone by, but you may feel a bit fatigued for a few days. 2. After you arrive home you may have a light meal and return to a normal diet as you can tolerate it without feeling sick to your stomach. 3. After surgery, you may feel pain or discomfort. This should be only transient, but if it persists please contact your doctor. 4. If there are any questions regarding the findings of your procedure, please feel free to contact your doctor. 6. If you are unable to contact your doctor with a problem, contact the hospital at [phone]. 7. Continue all your regular medications unless directed otherwise. I understand the above instructions and have no questions. Signature of Patient or Responsible Adult Escort Date/Time Name of Responsible Adult Escort Signature of Nurse Date/Time Stand Alone Forms: Anesthesia Discharge Inst., Masha Dumont (DSU) Activity:: Activity as Tolerated Diet:: high fiber Discharge Orders Discharge Orders: Discharge Order (Routine); Ordered 10/09/21 Ordered By: Lisa Schmidt
[2021-10-09] MEDS: Lactated Ringers 1,000 ML 80 ML IV (06:35)
--- NOTE | 2021-10-09 07:03 | ANES.PREOP_ITS ---
General Info Date of Service Date Performed: 10/09/21 Height: 6 ft Weight: 96.2 kg Body Mass Index (BMI): 28.8 Surgical Procedure: Operation Date: 10/09/21 07:35 Proposed Procedure Side Surgeon p Colonoscopy Lisa Schmidt MD Meds Allergies and Home Medications Allergies Allergy/AdvReac Type Severity Reaction Status Date / Time Penicillins Allergy Unknown Verified 10/09/21 06:28 Home Medication Medication Instructions Recorded aspirin 81 mg tablet,delayed 81 mg PO DAILY 10/07/19 release (Adult Low Dose Aspirin) simvastatin 20 mg tablet (Zocor) 20 mg PO HS #90 tab 01/26/21 psyllium seed (sugar) oral powder 1 tbsp PO DAILY 09/22/21 (Metamucil (sugar)) lisinopril 20 mg tablet 20 mg PO HS 10/06/21 Current Visit Medications: Current Medications Generic Name Dose Route Start Last Admin Trade Name Freq PRN Reason Stop Dose Admin Hyoscyamine Sulfate 0.125 mg 10/09/21 06:26 Hyoscyamine 0.125 Mg Sl/Oral/Chew SL DIRECTED PRN Ringer's Solution 1,000 mls @ 80 mls/hr 10/09/21 06:00 10/09/21 06:35 IV 11/05/21 23:59 80 mls/hr INFUSION LON Administration IV Miscellaneous Supplies 1 each 10/09/21 06:00 Iv Access IV 11/05/21 23:59 DIRECTED LON Ondansetron HCl 4 mg 10/09/21 06:26 Ondansetron 4 Mg/2 Ml Vial IVP Q4H PRN PRN Nausea / Vomiting Sodium Chloride 0 ml 10/09/21 06:00 Normal Saline Flush 10 Ml Syr IV 11/05/21 23:59 PRN PRN Sodium Chloride 0 ml 10/09/21 06:00 Normal Saline 10 Ml Vial IJ 11/05/21 23:59 DIRECTED PRN Sterile Water 0 ml 10/09/21 06:00 Water,Injection,Sterile 10 Ml Vial IJ 11/05/21 23:59 DIRECTED PRN PFSH Active Problems Active Problems: Problem Status Onset Code Prediabetes R73.03 Hyperlipidemia E78.5 Essential hypertension I10 Paroxysmal atrial fibrillation I48.0 Serrated adenoma of colon D12.6 Tubular adenoma of colon D12.6 Diverticulosis of colon K57.30 Medical History Medical History Mitral valve prolapse Non-rheumatic mitral regurgitation Pericardial effusion Postop MVR Renal calculi Surgical History Surgical History S/P left inguinal hernia repair (11/11/18) S/P mitral valve replacement with bioprosthetic valve (01/21/18) 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 S/P right inguinal hernia repair (03/16/19) S/P vasectomy Tobacco Smoking/Tobacco Use Status: Never Passive smoking exposure: Yes Alcohol Alcohol Intake: never Substance Use Substance use: Never Substance use type: does not use Counseling provided: none Vital Signs and Lab Results Vital Signs Most Recent Vital Signs in EMR: Most Recent Vital Signs Temp Pulse Resp BP Pulse Ox 36.4 C L 68 16 131/74 98 10/09/21 06:19 10/09/21 06:19 10/09/21 06:19 10/09/21 06:19 10/09/21 06:19 Lab Results Blood Type / Crossmatch: No Data to Display Complete Blood Count: No Data to Display Complete Metabolic Panel: No Data to Display Liver Function Panel: No Data to Display Coagulation Panel: 2 No Data to Display Cardiac Panel: No Data to Display Arterial Blood Gas: No Data to Display Venous Blood Gas: No Data to Display Pancreas Panel: No Data to Display Thyroid Panel: No Data to Display Infectious Disease: Coronavirus (COVID-19)(PCR) Negative (Negative) 10/06/21 08:30 10/06/21 Coronavirus 2019 Source Nasal/Nares 10/06/21 08:30 10/06/21 Blood Cultures: No Data to Display Toxicology Panel: No Data to Display Anesthesia Assessment and Plan Anesthesia History Personal History: No History of Anesthesia Complications Family History: No Family History of Anesthesia Complications Exercise Tolerance Exercise Tolerance: Metabolic Equivalents>4 Pertinent Negatives Pertinent Negatives: No Symptoms of GERD, No Major Cardiovascular Symptoms or Complaints, No Major Pulmonary Symptoms or Complaints and No History of CVA/TIA Cardiac & Pulmonary Exam Cardiac Exam: Normal S1/S2 Heart Sounds Pulmonary Exam: Clear Bilateral Breath Sounds Implantable Cardiac Device Does patient have a Pacemaker or an ICD?: No Airway Exam Known Difficult Airway: No Mallampati Class: 1 Mouth Opening: Normal (> 3cm) Thyromental Distance: Greater than 3 cm Neck Range of Motion: Full ROM Neck Circumference: Normal Teeth Condition: Normal Dentition Airway Comments: High angle narrow palate ASA Classification ASA Score: ASA 1 Emergency Case?: No NPO Status NPO Status: NPO Clears >2 hours, Solids >8 hours Anesthesia Plan Resuscitation Status: Full Code Anesthesia Technique: General Anesthesia Airway Planned: Natural Airway Monitors Used: Standard Monitors
[2021-10-09 07:06] VITALS: BMI 28.8
--- NOTE | 2021-10-09 07:25 | BOWEL_PTH ---
PATIENT: Justin Lombardi LOC: [facility] U#:[id number] AGE/SX: 56/M ROOM: RE10/09/[address]: Lisa Schmidt MD : 1965 BED: DIS: 10/09/2021 SPEC #: [id number] RECD: 10/09/21 11:50 STATUS: JUSTYN RE #: [id number] SEDRICK: 10/09/21 07:[address]: Lisa Schmidt DEPT: Surgical Specimen RECD BY: Leonie Crane ENTERED: 10/09/21 11:50 SP TYPE: Bowel OTHR DR: APRIL Kumar Tissues: 1 - BIOPSY BOWEL Procedures: GROSS AND MICRO LEVEL 4 Comments: [id number]
[2021-10-09 07:59] VITALS: BP 107/72; PULSE 53; RESP 18; TEMP 36.2; O2SAT 95
--- NOTE | 2021-10-09 07:59 | W.ANESPOSTOP ---
Postoperative Evaluation Date, Time and Location Date Performed: 10/09/21 Time Performed: 07:59 Patient Location: Day Surgery Unit Vital Signs Most Recent Imported Vital Signs: Most Recent Vital Signs Temp Pulse Resp BP Pulse Ox 36.4 C L 68 16 131/74 98 10/09/21 06:19 10/09/21 06:19 10/09/21 06:19 10/09/21 06:19 10/09/21 06:19 Most Recent Manually Entered Vital Signs: Adult Blood Pressure: 107/72 Heart Rate: 51 Respirations: 12 Oxygen Saturation (%): 95 Temperature (C): 36.2 C Pain Score (0-10 Scale): 0 Pain Score Most Recent Pain Score: Most Recent Pain Score Pain Level 0 10/09/21 06:19 Assessment Mental Status: Awake (Alert & Oriented to Patient Baseline) Airway and Respiratory Function: Patent airway with normal (patient baseline) respiratory exam Cardiovascular Function: Hemodynamically Stable Hydration Status: Adequately Hydrated Nausea & Vomiting: No Nausea or Vomiting Pain: Pt. Denies Any Pain Peripheral Nerve Block: Patient did not receive a nerve block
[2021-10-09 08:00] VITALS: BP 107/72; PULSE 51; RESP 12; TEMPC 36.2; O2SAT 95
[2021-10-09 08:24] VITALS: BP 109/73; PULSE 51; RESP 16; TEMP 36.4; O2SAT 96
== END 2021-10-09 08:53 | disposition home or self-care (01) ==
PROVIDERS: PCP Nurse Practitioner Family; Visit Provider Surgery
PROC: 0DJD8ZZ Inspection of Lower Intestinal Tract, Via Natural or Artificial Opening Endoscopic (ICD-10-PCS; CPT 45378; principal; 2021-10-09 07:30)
DX: Z12.11 Encounter for screening for malignant neoplasm of colon (principal); Z86.010 Personal history of colon polyps; K63.5 Polyp of colon; K57.30 Diverticulosis of large intestine without perforation or abscess without bleeding
CPT/HCPCS: 45380; 88305; J2001

== ENCOUNTER 2021-11-02 19:41 | Outpatient (REF) | payer OTHER, SELFPAY ==
[2021-11-03 11:24] LABS: COVID-19 RT-PCR UVMMC Result Negative (Negative)
== END 2021-11-02 19:42 | disposition home or self-care (01) ==
LOC: LBN 19:41
PROVIDERS: PCP Nurse Practitioner Family; Visit Provider Nurse Practitioner
DX: Z20.822 Contact with and (suspected) exposure to COVID-19 (principal)
CPT/HCPCS: U0003

== ENCOUNTER 2022-02-06 03:31 | Outpatient (CLI) | payer OTHER, SELFPAY ==
[2022-02-06 12:54] LABS: CREATININE 0.7 mg/dL (0.70-1.30)
== END 2022-02-06 03:32 | disposition home or self-care (01) ==
LOC: LOS 03:31
PROVIDERS: PCP Nurse Practitioner Family; Visit Provider Nurse Practitioner Family
DX: I10 Essential (primary) hypertension (principal)
CPT/HCPCS: 36415; 82565

== ENCOUNTER 2022-02-08 10:48 | Outpatient (CLI) | payer OTHER, SELFPAY ==
--- NOTE | 2022-02-08 10:45 | RT.EKG_ITS ---
APPROVED REPORT Exam: Resting ECG Reason for Exam: PAF Patient Location: O HR:59 bpm ECG Measurements Heart Rate 59 AXIS VA 181 P 31 QRSd 98 QRS 25 QT 402 T 28 QTc 399 Conclusion Sinus rhythm...normal P axis, V-rate 50- 99 Atrial premature complex...SV complex w/ short R-R interval Otherwise normal
== END 2022-02-08 10:49 | disposition home or self-care (01) ==
LOC: DI.CARD 10:50
PROVIDERS: PCP Nurse Practitioner Family; Visit Provider Internal Medicine Cardiovascular Disease
DX: I34.1 Nonrheumatic mitral (valve) prolapse (principal); I48.0 Paroxysmal atrial fibrillation; R94.31 Abnormal electrocardiogram [ECG] [EKG]; I49.1 Atrial premature depolarization
CPT/HCPCS: 93010

== ENCOUNTER 2022-12-16 09:19 | Emergency (ER) | payer OTHER, SELFPAY ==
[2022-12-16 09:29] VITALS: BP 144/77; PULSE 67; RESP 16; TEMP 36.4; O2SAT 97
--- NOTE | 2022-12-16 09:41 | ED.GENADUL_ITS ---
Discharge Plan Disposition Patient Disposition: Home Discharge Details Clinical Impression: Ruptured varicose vein Primary Care Provider: Arin Morgan ED Provider: Robert Figueroa Home Meds and New Rx's Prescriptions: Continued aspirin [Adult Low Dose Aspirin] 81 mg tablet,delayed release (DR/EC) 81 mg PO DAILY benzonatate 100 mg capsule 100 mg PO TID PRN (Reason: cough) Qty: 14 0RF Rx Instructions: no longer using benzonatate 100 mg capsule 100 mg PO TID PRN (Reason: cough) Qty: 14 0RF Rx Instructions: no longer using albuterol sulfate [Proventil HFA] 90 mcg/actuation HFA aerosol inhaler 2 puff inhalation Q6H PRN (Reason: shortness of breath or wheezing) Qty: 8.5 0RF Rx Instructions: no longer using lisinopril 20 mg tablet 20 mg PO HS Qty: 90 3RF simvastatin [Zocor] 20 mg tablet 20 mg PO HS Qty: 90 4RF Discharge Instructions Additional Instructions: Please read all of the information that accompanies these instructions. You were seen in the emergency department for your leg pain and swelling. You most likely have a ruptured varicose vein for which you should use an Moustapha wrap to compress your area of swelling and elevate it during the day today. Please wear compression stockings. Your blood test that looks for a blood clot returned positive. As result you are receiving a dose of anticoagulation medicine which will last 24 hours. Please avoid any strenuous activities or chances of falling for the next 24 hours. An ultrasound has been ordered for you tomorrow morning. Please schedule an appointment with your primary care provider later this week. Please return to the emergency department if develop fevers worsening swelling worsening pain or streaking signs of infection please return to the emergency department. Please do not take your aspirin tomorrow morning. Medical Decision Making This is an overall very well-appearing normothermic and not tachycardic 57-year-old male with right tibial swelling and history of varicose veins concerning for ruptured varicose vein. His limited bedside ultrasound was negative for any obvious DVTs but given limited sensitivity of the emergency lower extremity duplex for DVT patient will require an outpatient radiology duplex study on his right lower extremity on 12/17. We will obtain a D-dimer and if this is positive we will treat with 1.5 mg/kg subcutaneous enoxaparin to provide 24 hours of anticoagulation. If his D-dimer is negative will defer anticoagulation. Given my suspicion for ruptured varicose vein will advise elevation and compression dressing. No history of trauma nor any tibial tenderness so will defer plain films at this point. No pain out of proportion to suggest necrotizing soft tissue infection. Patient certainly is at risk for developing an infected hematoma secondary to his ruptured varicose veins however he has no significant erythema nor warmth so we will defer antibiotics at this point in time. Right foot warm and well-perfused so I am not concerned for vascular catastrophe. No abdominal pain nor hypotension to suggest ruptured AAA. 10 AM CBC with no anemia thrombocytopenia nor leukocytosis. 10:35 AM D-dimer returned positive for which patient will receive 1.5 mg/kg enoxaparin. I have also advised elevation and provided the patient with a Moustapha wrap in the ED. He is on 81 mg of aspirin daily and I have advised him to hold this tomorrow morning. I signed paperwork to have a right lower extremity duplex study performed tomorrow. Patient will follow up with his primary care provider following his ultrasound. HPI General Date/Time Provider Initiated Documentation: 12/16/22 09:40 . HPI Narrative: This is a 57-year-old male with history of varicose veins with atraumatic right lower extremity pain and swelling. Patient reports that yesterday his right leg became sore. He denies any specific injury. He is having no thigh pain. No fevers nor chills. He denies history of DVTs or PEs. He denies routine tobacco, ethanol, and illicits. He is not having any pain in his foot or his ankle. He has noticed some mild swelling and redness on his anterior right tibia. No numbness no tingling in right foot. Related Data Home Medications Medication Instructions Recorded Confirmed aspirin 81 mg tablet,delayed 81 mg PO DAILY 10/07/19 12/16/22 release (Adult Low Dose Aspirin) lisinopril 20 mg tablet 20 mg PO HS #90 tabs 01/29/22 12/16/22 simvastatin 20 mg tablet (Zocor) 20 mg PO HS #90 tabs 01/29/22 12/16/22 benzonatate 100 mg capsule 100 mg PO TID PRN cough #14 caps 07/18/22 12/05/22 albuterol sulfate 90 mcg/actuation 2 puff inhalation Q6H PRN 12/05/22 12/05/22 aerosol inhaler (Proventil HFA) shortness of breath or wheezing #8.5 grams benzonatate 100 mg capsule 100 mg PO TID PRN cough #14 caps 12/05/22 12/05/22 Previous Rx's Medication Instructions Recorded lisinopril 20 mg tablet 20 mg PO HS #90 tabs 01/29/22 simvastatin 20 mg tablet (Zocor) 20 mg PO HS #90 tabs 01/29/22 benzonatate 100 mg capsule 100 mg PO TID PRN cough #14 caps 07/18/22 albuterol sulfate 90 mcg/actuation 2 puff inhalation Q6H PRN 12/05/22 aerosol inhaler (Proventil HFA) shortness of breath or wheezing #8.5 grams benzonatate 100 mg capsule 100 mg PO TID PRN cough #14 caps 12/05/22 Allergies Allergy/AdvReac Type Severity Reaction Status Date / Time Penicillins Allergy Unknown Verified 12/16/22 09:33 General Stated Complaint: Vascular HUGO: 4 PFSH All Active Problems (Updated 12/16/22 @ 09:56 by Robert Figueroa MD) Ruptured varicose vein (Acute) H/O mitral valve repair (Acute) Hyperplastic colon polyp (Acute) Prediabetes (Acute) Hyperlipidemia (Chronic) Essential hypertension (Chronic) Serrated adenoma of colon (Chronic) Colonoscopy 2018 Tubular adenoma of colon (Chronic) Colonoscopy 2018 Diverticulosis of colon (Chronic) Medical History Mitral valve prolapse Non-rheumatic mitral regurgitation Pericardial effusion Postop MVR Renal calculi Surgical History History of colonoscopy (~09/2021) S/P left inguinal hernia repair (11/11/18) S/P mitral valve replacement with bioprosthetic valve (01/21/18) 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 Maternal Grandfather , At 68 from blood clot No problems noted. 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 Pets and animals: Yes Pets and animals: cat(s), dog(s) and other Details: Chickens Sexually active: Yes Do you think of yourself as: straight/heterosexual Current gender identity: male What is your relationship status?: How often do you talk on the phone with friends or family?: three or more times per week How often do you get together with friends or relatives?: three or more times per week How often do you attend presybeterian or judaism services?: 1-3 times per year Do you belong to any clubs or organized social groups?: yes Panel score (0-1 are the most socially isolated patients): 3 What type of physical activity do you participate in: walking, bicycling and other Details: treadmill Duration: 60-90 minutes/day Frequency: 5-6 times per week Francie/Yazidi: No preference Special francie needs: No Seatbelt use: always Helmet use: Yes Helmet use: always Drive intox or ride w/intox 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 Head: Normocephalic, atraumatic. Eye: Extraocular eye movements intact. No conjunctival injection. No scleral icterus. Ear, nose, mouth, throat: Grossly normal inspection. Normal voice, handling secretions normally. Neck: Trachea midline. Cardiovascular: Well-perfused distal extremities. Respiratory: Nonlabored respiration. Gastrointestinal: Nondistended abdomen. Musculoskeletal: On the anterior lateral aspect of the right sellers there is an area of swelling adjacent to varicose veins. No calf tenderness. Right foot warm and well-perfused with intact PT and DP pulses. 5 out of 5 strength dorsi and plantarflexion of the right foot. Cap refill less than 2 seconds in the right toes. No knee tenderness nor proximal thigh tenderness. Skin: Normal for age and race, grossly normal temperature and turgor. No acute rash. Neurologic: Alert and appropriate, no apparent acute deficits. Psychiatric: Mood and manner are appropriate. Grooming and personal hygiene are appropriate. Course Vital Signs Vital signs: Vital Signs Temperature 36.4 C 12/16/22 09:29 Pulse 67 12/16/22 09:29 Respiratory Rate 16 12/16/22 09:29 Blood Pressure 144/77 H 12/16/22 09:29 Pulse Oximetry 97 12/16/22 09:29 Temperature 36.4 C 12/16/22 09:29 Temperature Source Tympanic 12/16/22 09:29 Pulse 67 12/16/22 09:29 Respiratory Rate 16 12/16/22 09:29 Respiratory Effort Normal, Non-Labored 12/16/22 09:34 Blood Pressure 144/77 H 12/16/22 09:29 Blood Pressure Position Sitting 12/16/22 09:29 Pulse Oximetry 97 12/16/22 09:29 Oxygen Delivery Method Room Air 12/16/22 09:29 Oxygen Flow Rate 0 12/16/22 09:29 Pain Level 4 12/16/22 09:29 POCUS Exam (ED) Limited Vascular Exam DATE OF EXAM: 12/16/22 TIME OF EXAM: 09:55 Vascular Exam: Right lower extremity REASON FOR EXAM: Right lower extremity pain Exam Complete DIFFERENTIAL DIAGNOSES: No signs of DVT
[2022-12-16 09:47] VITALS: RESP 16
[2022-12-16 09:51] LABS: Abs Immature Grans 0.04 10^3/uL (0.0-0.06); Absolute Basophil Count 0.03 10^3/uL (0.0-0.2); Absolute Lymphocyte Count 1.85 10^3/uL (1.2-3.4); Absolute Monocyte Count 0.65 10^3/uL (0.1-0.8); Absolute Neutrophil Count 4.29 10^3/uL (1.2-6.7); Basophils % 0.4; Eosinophils % 4.2; HCT 45.6 % (40.0-50.0); HGB 15.4 g/dL (13.5-17.5); Immature Grans % 0.6; Lymphocytes % 25.8; MCH 29.8 pg (27.0-33.0); MCHC 33.8 % (32.0-36.0); MCV 88 fL (80-95); MPV 9.1 fL (8.0-11.0); Monocytes % 9.1; Neutrophils % 59.9; Platelet Count 229 10^3/uL (130-400); RBC 5.17 10^6/uL (4.36-5.78); RDW 12.7 % (11.8-14.1); RDW-SD 41.6 fL; WBC 7.16 10^3/uL (4.4-10.8)
[2022-12-16 10:01] LABS: BUN 17 mg/dL (7-18); CREATININE 0.7 mg/dL (0.70-1.30); Calcium 8.6 mg/dL (8.5-10.1); Chloride 105 mmol/L (98-107); Glucose 104 mg/dL (74-106); Potassium 4.4 mmol/L (3.5-5.1); Sodium 141 mmol/L (136-145)
[2022-12-16 10:20] LABS: D-Dimer 1065 ng/mlFEU (<500)
--- NOTE | 2022-12-16 11:44 | NUR.NOTE ---
Request faxed DI right lower US for right leg pain, to do SatDecember 17, f/u PCP Nursing Note:
--- NOTE | 2022-12-16 11:46 | NUR.NOTE ---
Referral faxed to PCP to fu after US. Nursing Note:
== END 2022-12-16 10:51 | disposition home or self-care (01) ==
PROVIDERS: Emergency Provider Emergency Medicine; PCP Nurse Practitioner Family
DX: I83.891 Varicose veins of right lower extremity with other complications (principal); I10 Essential (primary) hypertension; R73.03 Prediabetes; R79.89 Other specified abnormal findings of blood chemistry; Z79.82 Long term (current) use of aspirin
CPT/HCPCS: 36415; 80048; 93971; 99284; 85025; 85379; 99283; J1650

== ENCOUNTER 2023-02-12 03:36 | Outpatient (CLI) | payer OTHER, SELFPAY ==
[2023-02-12 12:33] LABS: Calculated LDL 114 mg/dL (<100); Cholesterol 182 mg/dL (<200); HDL Cholesterol 43 mg/dL (40-60); TSH (W/Ref FT4) 0.95 uIU/mL (0.36-3.74); Triglyceride 127 mg/dL (<150)
[2023-02-12 13:40] LABS: Hemoglobin A1C 5.9 % (<5.7)
[2023-02-12 17:58] LABS: PSA, Screening 1.4 ng/mL (<=3.5)
== END 2023-02-12 03:37 | disposition home or self-care (01) ==
LOC: LOS 03:37
PROVIDERS: PCP Nurse Practitioner Family; Visit Provider Nurse Practitioner Family
DX: Z00.00 Encounter for general adult medical examination without abnormal findings (principal); I10 Essential (primary) hypertension; R73.03 Prediabetes; Z12.5 Encounter for screening for malignant neoplasm of prostate; E78.5 Hyperlipidemia, unspecified
CPT/HCPCS: 36415; 80061; 84153; 83036; 84443

== ENCOUNTER 2024-02-24 03:28 | Outpatient (CLI) | payer OTHER, SELFPAY ==
[2024-02-24 11:55] LABS: Anion Gap 7.9 mmol/L (3-11); BUN 14 mg/dL (7-18); CO2 29.1 mmol/L (21.0-32.0); CREATININE 0.8 mg/dL (0.70-1.30); Calcium 9.1 mg/dL (8.5-10.1); Chloride 103 mmol/L (98-107); Estimated GFR 101.95 (mL/min/1.73m2); Glucose 101 mg/dL (74-106); Sodium 140 mmol/L (136-145)
[2024-02-24 12:09] LABS: Hemoglobin A1C 5.9 % (<5.7)
[2024-02-24 19:38] LABS: Hepatitis C Ab w Rflx HCV PCR Negative (Negative)
[2024-02-24 20:18] LABS: HBs Antibody, Quant <3.1 mIU/mL (See Note); Hep B Surface Ab Negative (See Note); Hepatitis B Core Antibody Negative (Negative); Hepatitis B Surface Antigen Negative (Negative)
[2024-02-24 20:20] LABS: HIV-1/2 Ag & Ab Screen Negative (Negative)
== END 2024-02-24 03:29 | disposition home or self-care (01) ==
LOC: LOS 03:28
PROVIDERS: PCP Nurse Practitioner Family; Visit Provider Nurse Practitioner Family
DX: R73.03 Prediabetes (principal); Z11.59 Encounter for screening for other viral diseases; Z11.4 Encounter for screening for human immunodeficiency virus [HIV]
CPT/HCPCS: 36415; 80048; 86704; 86706; 86803; 87340; 87389; 83036

== ENCOUNTER 2024-02-28 09:49 | Outpatient (CLI) | payer OTHER, SELFPAY ==
--- NOTE | 2024-02-28 09:45 | RT.EKG_ITS ---
APPROVED REPORT Exam: Resting ECG Reason for Exam: Follow up Needed Patient Location: O HR:55 bpm ECG Measurements Heart Rate 55 AXIS MO 179 P 42 QRSd 108 QRS 55 QT 423 T 59 QTc 405 Conclusion Sinus rhythm...normal P axis, V-rate 50- 99 Normal Electrocardiogram
== END 2024-02-28 09:50 | disposition home or self-care (01) ==
LOC: DI.CARD 09:49
PROVIDERS: PCP Nurse Practitioner Family; Visit Provider Internal Medicine Cardiovascular Disease
DX: I10 Essential (primary) hypertension (principal)
CPT/HCPCS: 93010

== ENCOUNTER 2025-02-22 04:36 | Outpatient (CLI) | payer OTHER, SELFPAY ==
[2025-02-22 13:07] LABS: ALT 27 U/L (16-63); AST 25 U/L (15-37); Albumin 3.9 g/dL (3.4-5.0); Alkaline Phosphatase 84 U/L (46-116); Anion Gap 7.0 mmol/L (3-11); BUN 16 mg/dL (7-18); Bilirubin, Total 0.6 mg/dL (0.2-1.0); CO2 29.0 mmol/L (21.0-32.0); Calcium 8.9 mg/dL (8.5-10.1); Calculated LDL 128 mg/dL (<100); Chloride 104 mmol/L (98-107); Cholesterol 208 mg/dL (<200); Estimated GFR 101.32 (mL/min/1.73m2); Glucose 92 mg/dL (74-106); HDL Cholesterol 43 mg/dL (>or=40); Potassium 4.3 mmol/L (3.5-5.1); Sodium 140 mmol/L (136-145); Total Protein 7.0 g/dL (6.4-8.2); Triglyceride 185 mg/dL (<150)
[2025-02-22 13:37] LABS: Hemoglobin A1C 5.8 % (<5.7)
[2025-02-22 18:03] LABS: PSA, Screening 2.6 ng/mL (<=4.5)
[2025-02-22 18:10] LABS: HBs Antibody, Quant >1000.0 mIU/mL (See Note); Hepatitis B Surface Ab Positive (See Note)
== END 2025-02-22 04:37 | disposition home or self-care (01) ==
LOC: LOS 04:36
PROVIDERS: PCP Nurse Practitioner Family; Visit Provider Nurse Practitioner Family
DX: Z11.59 Encounter for screening for other viral diseases (principal); R73.03 Prediabetes; E78.5 Hyperlipidemia, unspecified; I10 Essential (primary) hypertension; Z12.5 Encounter for screening for malignant neoplasm of prostate
CPT/HCPCS: 36415; 80053; 80061; 84153; 86706; 83036

== ENCOUNTER 2025-03-05 05:23 | Outpatient (CLI) | payer OTHER, SELFPAY ==
--- NOTE | 2025-03-05 06:49 | DI.US_ITS ---
APPROVED REPORT EXAM: Comprehensive 2D, Doppler, and color-flow Echocardiogram Patient Location: Out-Patient Spray Machine Tender: Andrea Benites RDCS (AE) Indications: S/P mitral valve repair Other Information Study Quality: Adequate Conclusion Normal left ventricular wall thickness and chamber size. Ejection fraction is 55%. Wall motion is normal Normal right ventricular size and function Both atria are normal in size Trileaflet aortic valve without stenosis or regurgitation There is a mitral annuloplasty ring. There is residual mild eccentric mitral regurgitation Estimated right ventricular systolic pressure is 32 mmHg Wall motion Left Ventricle The left ventricle is normal size. The left ventricular systolic function is normal. The left ventricular ejection fraction is within the normal range. There is normal left ventricular wall thickness. There is normal LV segmental wall motion. There is no ventricular septal defect visualized. LVEF is 55%. Right Ventricle The right ventricle is normal size. The right ventricular systolic function is normal. Atria The left atrium size is normal. The right atrium size is normal. The interatrial septum is intact with no evidence for an atrial septal defect. Aortic Valve The aortic valve is normal in structure. Aortic valve is trileaflet. There is no aortic valvular stenosis. No aortic regurgitation is present. Mitral Valve Patient had mitral valve repair in 2018. Mild mitral regurgitation. Tricuspid Valve The tricuspid valve is normal in structure. There is no tricuspid valve stenosis. Trace tricuspid regurgitation. The RVSP is 31.8 mmHg. Pulmonic Valve The pulmonary valve is normal in structure. There is no pulmonic valvular stenosis. There is no pulmonic valvular regurgitation. Great Vessels The aortic root is normal in size. The ascending aorta is normal in size. Aortic arch is normal in caliber. IVC is normal in size and collapses >50% with inspiration. Pericardium There is no pericardial effusion. 2D Dimensions IVSD d PLAX 0.82 cm M: 0.6-1.2 Ao Root d 3.10 cm M: 3.1 - 3.7 LVPW d PLAX 0.76 cm M: 0.6 - 1.2 Ao Asc Diam d 3.13 cm M: 2.6 - 3.4 LVID d PLAX 5.90 cm M: 4.2 - 5.8 LVDs 4.39 cm M: 2.5 - 4.0 LV EF Teichholz 49.8 % FS 25.66 % LV EDV (Teich) 173.3 mL LV ESV (Teich) 87.1 mL Stroke Vol Index (Teich) 38.16 M-Mode TAPSE 1.89 cm (M/F) >1.7 Auto EF LV EDV A4C 205.6 mL LV EDV A2C 187.7 mL LV EDV BP 201.2 mL LV ESV A4C 95.7 mL LV ESV A2C 83.6 mL LV ESV BP 87.8 mL LVEF(%) A4C 53.5 % LVEF(%) A2C 55.4 % LVEF(%) BP 56.4 % LV SV A4C 110.0 ml LV SV A2C 104.1 ml LV SV BP 113.4 ml LV CO A4C 6.0 L/min LV CO A2C 5.8 L/min LV CO BP 5.9 L/min HR A4C 54.47 BPM HR A2C 55.82 BPM LV EDV Index (BP) LA Volume LA Length A4C 5.2 cm LA Length A2C 4.3 cm LA Area A4C s 13.46 cm2 LA Area A2C s 13.93 cm2 LA Vol A4C A-L 29.60 mL LA Vol A2C A-L 38.69 mL LA Vol Biplane A-L 37.4 mL LA Vol/BSA A4C A-L LA Vol/BSA A2C A-L LA Vol/BSA BP A-L 16.6 mL/m2 LA Vol A4C MOD 27.4 mL LA Vol A2C MOD 35.8 mL LA Vol BP MOD 34.0 mL RA Volume RA Area A4C 10.1 cm2 RA ESV A4C (A-L) 18.3mL RA Vol/BSA A4C A-L RA Length A4C 4.7 cm RA ESV A4C (MOD) 17.3mL LV Diastology MV E' medial 0.116 (>0.07 m/s) MV E Vmax 1.28 (0.4-1.3 m/s) MV E/E' MED 11.07 (<14) MV A Vmax 1.00 (0.4-1.3 m/s) MV E' lateral 0.123 (>0.1 m/s) E/A Ratio 1.3 MV E/E' LAT 10.39 (<14) MV E' Average 0.119 m/s MV E/E'(average) 10.72 Aortic Valve AoV Vmax 1.62 m/s LVOT Vmax 1.30 m/s AoV Peak Grad 10.5 mmHg LVOT Peak Grad 6.7 mmHg AoV Area (Vmax) 3.24 cm2 LVOT VTI 0.281 m AoV VTI 0.384 m LVOT Mean Grad 3.4 mmHg AoV Mean Khalif. 1.10 m/s LVOT SV 113.94 mL AoV Mean Grad 5.6 mmHg LVOT Diam s 2.25 cm AoV Area (VTI) 2.97 cm2 AV Regurg Peak Gr. 10.49 mmHg Velocity Ratio 0.80 Mitral Valve MV DT 277 (160-240 msec) Pulmonary Valve PV Vmax 1.32 (0.5-1.5 m/s) RVOT Vmax 0.81 m/s PV Peak Grad 6.9 mmHg RVOT Peak Gr. 2.6 mmHg PV Mean Khalif 0.78 m/s RVOT VTI 0.194 m PV Mean Grad 3.0 mmHg RVOT Mean Gr. 1.4 mmHg Tricuspid Valve RA Pressure 3.00 mmHg TR Vmax 2.69 m/s TR Peak Grad 28.8 mmHg RVSP (TR) 31.8 mmHg
== END 2025-03-05 05:43 ==
LOC: DI 05:26
PROVIDERS: PCP Nurse Practitioner Family; Visit Provider Internal Medicine Cardiovascular Disease
DX: Z98.890 Other specified postprocedural states (principal); I35.1 Nonrheumatic aortic (valve) insufficiency
CPT/HCPCS: 93306

== ENCOUNTER 2025-05-24 03:50 | Outpatient (CLI) | payer OTHER, SELFPAY ==
[2025-05-24 16:26] LABS: Cholesterol 188 mg/dL (<200); HDL Cholesterol 44 mg/dL (>40)
== END 2025-05-24 03:51 | disposition home or self-care (01) ==
LOC: LOS 03:50
PROVIDERS: PCP Nurse Practitioner Family; Visit Provider Nurse Practitioner Family
DX: E78.5 Hyperlipidemia, unspecified (principal)
CPT/HCPCS: 36415; 80061